=== PATIENT | female | born 1950 | race Caucasian/White ===

== ENCOUNTER → 2017-09-07 | Outpatient (CLI) | payer MEDICARE, OTHER ==
[2017-09-07 19:17] LABS: BASOPHILS % (AUTO) 0.6 %; EOSINOPHILS # (AUTO) 0.2 10^3/uL (0.0-0.7); EOSINOPHILS % (AUTO) 2.7 %; HCT - HEMATOCRIT 44.3 % (37.0-47.0); HGB - HEMOGLOBIN 14.6 g/dL (12.0-16.0); LYMPHOCYTES # (AUTO) 2.4 10^3/uL (1.5-3.5); LYMPHOCYTES % (AUTO) 27.9 %; MEAN CORPUSCULAR HEMOGLOBIN 29.8 pg (27.0-31.0); MEAN CORPUSCULAR HGB CONC 32.9 g/dL (32.0-36.0); MEAN CORPUSCULAR VOLUME 90.6 fL (81.0-99.0); MEAN PLATELET VOLUME 11.5 fL (7.9-10.8); MONOCYTES # (AUTO) 0.5 10^3/uL (0.0-1.0); MONOCYTES % (AUTO) 5.8 %; NEUTROPHILS # (AUTO) 5.5 10^3/uL (1.5-6.6); RED BLOOD COUNT 4.89 10^6/uL (4.20-5.40); RED CELL DISTRIBUTION WIDTH 14.2 % (12.0-15.0); UNCORRECTED WHITE BLOOD COUNT 8.7 x10^3/uL; WHITE BLOOD COUNT 8.7 x10^3/uL (4.8-10.8)
[2017-09-07 19:34] LABS: ALBUMIN/GLOBULIN RATIO 1.2 (1.0-2.2); BILIRUBIN,TOTAL 0.4 mg/dL (0.2-1.0); BUN - BLOOD UREA NITROGEN 14 mg/dL (6-20); CALCIUM 9.3 mg/dL (8.5-10.3); CARBON DIOXIDE - CO2 25 mmol/L (21-32); CHLORIDE 101 mmol/L (101-111); CHOL/HDL RATIO 3.4 (<4.4); CHOLESTEROL 172 mg/dL; CREATININE 0.8 mg/dL (0.4-1.0); GFR - MDRD 71 (>89); GLUCOSE 297 mg/dL (70-100); HDL CHOLESTEROL 50 mg/dL; POTASSIUM 4.6 mmol/L (3.5-5.0); SODIUM 135 mmol/L (135-145); TOTAL PROTEIN 7.2 g/dL (6.7-8.2); TRIGLYCERIDES 113 mg/dL; VLDL CHOLESTEROL 23 mg/dL
[2017-09-07 19:54] LABS: HEMOGLOBIN A1C 1.69 g/dL
== END ==
LOC: LAB.WCP 15:30
PROVIDERS: ATTEND Family Medicine
DX: E11.9 Type 2 diabetes mellitus without complications (principal)
CPT/HCPCS: 36415; 80053; 80061; 82043; 83036; 85025

== ENCOUNTER → 2017-09-09 | Outpatient (CLI) | payer MEDICARE, OTHER | LOC: LAB.WCP 08:00 | PROVIDERS: ATTEND Family Medicine | DX: E11.9 Type 2 diabetes mellitus without complications (principal) | CPT/HCPCS: 82043 ==

== ENCOUNTER 2017-12-22 16:03 | Outpatient (CLI) | payer MEDICARE, OTHER ==
[2017-12-22 18:47] LABS: BASOPHILS % (AUTO) 0.4 %; EOSINOPHILS # (AUTO) 0.3 10^3/uL (0.0-0.7); EOSINOPHILS % (AUTO) 3.3 %; HGB - HEMOGLOBIN 14.2 g/dL (12.0-16.0); LYMPHOCYTES # (AUTO) 3.1 10^3/uL (1.5-3.5); LYMPHOCYTES % (AUTO) 31.5 %; MEAN CORPUSCULAR HEMOGLOBIN 30.1 pg (27.0-31.0); MEAN CORPUSCULAR VOLUME 91.3 fL (81.0-99.0); MEAN PLATELET VOLUME 10.8 fL (7.9-10.8); MONOCYTES # (AUTO) 0.7 10^3/uL (0.0-1.0); MONOCYTES % (AUTO) 6.9 %; NEUTROPHILS # (AUTO) 5.7 10^3/uL (1.5-6.6); NEUTROPHILS % (AUTO) 57.9 %; PLT - PLATELET COUNT 187 10^3/uL (130-450); RED BLOOD COUNT 4.71 10^6/uL (4.20-5.40); RED CELL DISTRIBUTION WIDTH 14.3 % (12.0-15.0); WHITE BLOOD COUNT 9.8 x10^3/uL (4.8-10.8)
[2017-12-22 19:08] LABS: ALBUMIN 3.9 g/dL (3.2-5.5); ALBUMIN/GLOBULIN RATIO 1.2 (1.0-2.2); ALKALINE PHOSPHATASE 77 IU/L (42-121); ALT ALANINE AMINOTRANSFERASE 18 IU/L (10-60); AST ASPARTATE AMINOTRANSFERASE 18 IU/L (10-42); BILIRUBIN,TOTAL 0.3 mg/dL (0.2-1.0); BUN - BLOOD UREA NITROGEN 14 mg/dL (6-20); CALCIUM 9.3 mg/dL (8.5-10.3); CARBON DIOXIDE - CO2 26 mmol/L (21-32); CHLORIDE 98 mmol/L (101-111); CHOL/HDL RATIO 3.6 (<4.4); CHOLESTEROL 175 mg/dL; CREATININE 0.7 mg/dL (0.4-1.0); GFR - MDRD 83 (>89); GLUCOSE 175 mg/dL (70-100); HDL CHOLESTEROL 48 mg/dL; LDL CHOLESTEROL,CALCULATED 95 mg/dL; SODIUM 137 mmol/L (135-145); TOTAL PROTEIN 7.2 g/dL (6.7-8.2); VLDL CHOLESTEROL 32 mg/dL
[2017-12-22 19:09] LABS: HB2 TOTAL 15.4 g/dL; HEMOGLOBIN A1C 1.38 g/dL; HEMOGLOBIN A1C % 10.3 % (4.6-6.2)
== END 2017-12-22 16:04 | disposition home or self-care (01) ==
LOC: LAB.WCP 16:03
PROVIDERS: ATTEND Family Medicine
DX: I10 Essential (primary) hypertension (principal); Z79.4 Long term (current) use of insulin; E11.9 Type 2 diabetes mellitus without complications
CPT/HCPCS: 36415; 80053; 80061; 82043; 83036; 83721; 84443; 85025

== ENCOUNTER 2018-08-22 08:00 | Outpatient (CLI) | payer MEDICARE, OTHER | END 2018-08-22 08:01 | disposition home or self-care (01) | LOC: LAB.R 08:00 | PROVIDERS: ATTEND Family Medicine | DX: R30.0 Dysuria (principal) | CPT/HCPCS: 87086 ==

== ENCOUNTER 2018-08-31 11:05 | Outpatient (CLI) | payer MEDICARE, OTHER ==
[2018-08-31 18:54] LABS: BILIRUBIN,URINE NEGATIVE (NEGATIVE); GLUCOSE, URINE (UA) >=1000 mg/dL (NEGATIVE); KETONES,URINE (UA) NEGATIVE (NEGATIVE); LEUKOCYTE ESTERASE, URINE NEGATIVE (NEGATIVE); NITRITE,URINE NEGATIVE (NEGATIVE); OCCULT BLOOD,URINE NEGATIVE (NEGATIVE); PROTEIN,URINE NEGATIVE (NEGATIVE); UROBILINOGEN,URINE 0.2 (NORMAL) E.U./dL (NORMAL)
[2018-08-31 19:07] LABS: CLARITY,URINE CLOUDY (CLEAR)
[2018-08-31 19:16] LABS: AMORPHOUS SEDIMENT,UR Moderate /LPF; BACTERIA,URINE None Seen /HPF (None Seen); RBC,URINE None Seen /HPF (0-5); SQUAMOUS EPITHELIAL CELL,UR RARE Squamous (<= Few)
[2018-08-31 19:17] LABS: CRYSTALS,URINE 3-5 Calcium Oxalate /LPF
== END 2018-08-31 11:06 ==
LOC: LAB.R 11:05
PROVIDERS: ATTEND Nurse Practitioner
DX: R30.0 Dysuria (principal)
CPT/HCPCS: 81001; 81003; 87086

== ENCOUNTER 2019-01-17 10:15 | Outpatient (CLI) | payer MEDICARE, OTHER ==
[2019-01-17 12:53] LABS: BASOPHILS # (AUTO) 0.1 10^3/uL (0.0-0.1); BASOPHILS % (AUTO) 0.8 %; EOSINOPHILS # (AUTO) 0.2 10^3/uL (0.0-0.7); EOSINOPHILS % (AUTO) 2.3 %; HGB - HEMOGLOBIN 14.3 g/dL (12.0-16.0); LYMPHOCYTES # (AUTO) 2.6 10^3/uL (1.5-3.5); LYMPHOCYTES % (AUTO) 27.1 %; MEAN CORPUSCULAR HGB CONC 34.2 g/dL (32.0-36.0); MEAN CORPUSCULAR VOLUME 90.7 fL (81.0-99.0); MEAN PLATELET VOLUME 11.2 fL (7.9-10.8); MONOCYTES # (AUTO) 0.7 10^3/uL (0.0-1.0); NEUTROPHILS # (AUTO) 6.1 10^3/uL (1.5-6.6); NEUTROPHILS % (AUTO) 62.8 %; PLT - PLATELET COUNT 184 10^3/uL (130-450); RED BLOOD COUNT 4.61 10^6/uL (4.20-5.40); RED CELL DISTRIBUTION WIDTH 14.2 % (12.0-15.0); WHITE BLOOD COUNT 9.7 x10^3/uL (4.8-10.8)
[2019-01-17 13:03] LABS: ALBUMIN 3.8 g/dL (3.2-5.5); ALBUMIN/GLOBULIN RATIO 1.1 (1.0-2.2); ALKALINE PHOSPHATASE 120 IU/L (42-121); ALT ALANINE AMINOTRANSFERASE 18 IU/L (10-60); AST ASPARTATE AMINOTRANSFERASE 18 IU/L (10-42); BILIRUBIN,TOTAL 0.4 mg/dL (0.2-1.0); BUN - BLOOD UREA NITROGEN 27 mg/dL (6-20); CALCIUM 10.2 mg/dL (8.5-10.3); CARBON DIOXIDE - CO2 26 mmol/L (21-32); CHLORIDE 98 mmol/L (101-111); CHOL/HDL RATIO 3.5 (<4.4); CHOLESTEROL 178 mg/dL; CREATININE 0.9 mg/dL (0.4-1.0); GFR - MDRD 62 (>89); GLUCOSE 319 mg/dL (70-100); HDL CHOLESTEROL 51 mg/dL; LDL CHOLESTEROL,CALCULATED 93 mg/dL; LDL/HDL RATIO 1.8 (<4.4); SODIUM 134 mmol/L (135-145); TOTAL PROTEIN 7.2 g/dL (6.7-8.2); VLDL CHOLESTEROL 34 mg/dL
[2019-01-17 13:36] LABS: HB2 TOTAL 15.8 g/dL; HEMOGLOBIN A1C 1.74 g/dL; HEMOGLOBIN A1C % 12.2 % (4.6-6.2)
== END 2019-01-17 10:16 | disposition home or self-care (01) ==
LOC: LAB.WCP 10:15
PROVIDERS: ATTEND Family Medicine
DX: E11.65 Type 2 diabetes mellitus with hyperglycemia (principal); I10 Essential (primary) hypertension
CPT/HCPCS: 36415; 80053; 80061; 83036; 83721; 84443; 85025

== ENCOUNTER 2019-04-21 08:00 | Outpatient (CLI) | payer MEDICARE, OTHER ==
[2019-04-21 19:14] LABS: HB2 TOTAL 14.3 g/dL; HEMOGLOBIN A1C 1.37 g/dL; HEMOGLOBIN A1C % 10.9 % (4.6-6.2)
== END 2019-04-21 23:59 | disposition home or self-care (01) ==
LOC: LAB.WCP 08:00
PROVIDERS: ATTEND Family Medicine
DX: E11.65 Type 2 diabetes mellitus with hyperglycemia (principal)
CPT/HCPCS: 36415; 83036

== ENCOUNTER 2019-08-14 15:00 | Outpatient (CLI) | payer MEDICARE, OTHER ==
[2019-08-14 19:35] LABS: CALCIUM 9.9 mg/dL (8.5-10.3); CREATININE 0.8 mg/dL (0.4-1.0)
[2019-08-14 20:14] LABS: HB2 TOTAL 14.4 g/dL; HEMOGLOBIN A1C 1.34 g/dL; HEMOGLOBIN A1C % 10.7 % (4.6-6.2)
== END 2019-08-14 23:59 | disposition home or self-care (01) ==
LOC: LAB.N 15:00
PROVIDERS: ATTEND Family Medicine
DX: E11.8 Type 2 diabetes mellitus with unspecified complications (principal)
CPT/HCPCS: 36415; 80048; 82043; 82570; 83036

== ENCOUNTER 2019-11-24 10:51 | Outpatient (CLI) | payer MEDICARE, OTHER ==
[2019-11-24 18:45] LABS: BASOPHILS % (AUTO) 0.5 %; EOSINOPHILS # (AUTO) 0.2 10^3/uL (0.0-0.7); EOSINOPHILS % (AUTO) 2.6 %; HGB - HEMOGLOBIN 13.3 g/dL (12.0-16.0); LYMPHOCYTES # (AUTO) 2.4 10^3/uL (1.5-3.5); LYMPHOCYTES % (AUTO) 28.5 %; MEAN CORPUSCULAR HGB CONC 32.1 g/dL (32.0-36.0); MEAN CORPUSCULAR VOLUME 93.5 fL (81.0-99.0); MONOCYTES # (AUTO) 0.6 10^3/uL (0.0-1.0); MONOCYTES % (AUTO) 6.7 %; NEUTROPHILS # (AUTO) 5.2 10^3/uL (1.5-6.6); NEUTROPHILS % (AUTO) 61.3 %; PLT - PLATELET COUNT 132 10^3/uL (130-450); RED BLOOD COUNT 4.43 10^6/uL (4.20-5.40); RED CELL DISTRIBUTION WIDTH 14.4 % (12.0-15.0); WHITE BLOOD COUNT 8.5 x10^3/uL (4.8-10.8)
[2019-11-24 18:48] LABS: ALBUMIN 3.7 g/dL (3.2-5.5); ALBUMIN/GLOBULIN RATIO 1.2 (1.0-2.2); ALKALINE PHOSPHATASE 79 IU/L (42-121); ALT ALANINE AMINOTRANSFERASE 18 IU/L (10-60); AST ASPARTATE AMINOTRANSFERASE 17 IU/L (10-42); BILIRUBIN,TOTAL 0.5 mg/dL (0.2-1.0); BUN - BLOOD UREA NITROGEN 15 mg/dL (6-20); CALCIUM 9.6 mg/dL (8.5-10.3); CARBON DIOXIDE - CO2 26 mmol/L (21-32); CHLORIDE 100 mmol/L (101-111); CHOL/HDL RATIO 3.1 (<4.4); CHOLESTEROL 133 mg/dL; CREATININE 0.9 mg/dL (0.4-1.0); GFR - MDRD 62 (>89); GLUCOSE 173 mg/dL (70-100); HDL CHOLESTEROL 43 mg/dL; LDL CHOLESTEROL,CALCULATED 65 mg/dL; LDL/HDL RATIO 1.5 (<4.4); SODIUM 137 mmol/L (135-145); TOTAL PROTEIN 6.9 g/dL (6.7-8.2); VLDL CHOLESTEROL 25 mg/dL
[2019-11-24 18:51] LABS: HB2 TOTAL 13.7 g/dL; HEMOGLOBIN A1C 1.23 g/dL; HEMOGLOBIN A1C % 10.4 % (4.6-6.2)
[2019-11-24 19:14] LABS: PLATELET ESTIMATE, MANUAL NORMAL (130-450,000) (NORMAL); PLATELET MORPHOLOGY NORMAL APPEARANCE (NORMAL); RBC MORPHOLOGY (MULTIPLE) NORMAL APPEARANCE (NORMAL)
== END 2019-11-24 23:59 | disposition home or self-care (01) ==
LOC: LAB.N 10:51
PROVIDERS: ATTEND Family Medicine
DX: N28.9 Disorder of kidney and ureter, unspecified (principal); E78.5 Hyperlipidemia, unspecified; E11.65 Type 2 diabetes mellitus with hyperglycemia; I10 Essential (primary) hypertension
CPT/HCPCS: 36415; 80053; 80061; 82043; 82570; 83036; 83721; 84443; 85025

== ENCOUNTER 2019-11-28 11:37 | Outpatient (CLI) | payer MEDICARE, OTHER ==
[2019-11-28 19:19] LABS: MICROALBUM/CREATININE RATIO,UR 18.8 ug/mg (<30.0); MICROALBUMIN,URINE 1.2 mg/dL (0-300.0)
== END 2019-11-28 23:59 | disposition home or self-care (01) ==
LOC: LAB.R 11:37
PROVIDERS: ATTEND Family Medicine
DX: N28.9 Disorder of kidney and ureter, unspecified (principal); E78.5 Hyperlipidemia, unspecified; E11.65 Type 2 diabetes mellitus with hyperglycemia; I10 Essential (primary) hypertension
CPT/HCPCS: 82043; 82570

== ENCOUNTER 2019-12-25 15:19 | Outpatient (CLI) | payer MEDICARE, OTHER ==
--- NOTE | 2019-12-27 18:00 | Mammography Report ---
Reason: ROUTINE MAMMO Procedure Date: 12/25/2019 Accession Number: [id number] / [id number] Procedure: MGN - Screening Mammo Dig Bilat CPT Code: Final Report FULL RESULT: EXAM: Screening Mammo Dig Bilat DATE: 12/25/2019 3:49 PM CLINICAL HISTORY: Routine screening. History of right lumpectomy and radiation therapy TECHNIQUE: (B) - Bilateral CC and MLO views were obtained. COMPARISON: 09/23/17, 06/19/2016 and 06/18/2015 PARENCHYMAL PATTERN: (D) - The breasts demonstrate heterogeneously dense fibroglandular parenchyma bilaterally. FINDINGS: Posttreatment changes right breast including architectural distortion, skin thickening, and multiple surgical clips are similar to previous. There are no new suspicious masses, calcifications, or areas of distortion. IMPRESSION: Benign findings. BI-RADS category 2. RECOMMENDATION: (ANNUAL) - Recommend routine annual screening mammography. BI-RADS CATEGORY: (2) - Benign Findings. STANDARD QUALIFYING STATEMENTS: 1. This examination was not reviewed with the aid of Computer-Aided Detection (CAD). 2. A negative or benign imaging report should not preclude biopsy if clinically suspicious findings are present. 3. Dense breasts may obscure an underlying neoplasm. 4. This examination was reviewed without the aid of 3D breast imaging (tomosynthesis).
== END 2019-12-25 15:20 | disposition home or self-care (01) ==
LOC: DI.N 15:19
PROVIDERS: ATTEND Family Medicine
DX: Z12.31 Encounter for screening mammogram for malignant neoplasm of breast (principal); Z85.3 Personal history of malignant neoplasm of breast; Z92.3 Personal history of irradiation
CPT/HCPCS: 77067

== ENCOUNTER 2020-02-26 08:00 | Outpatient (CLI) | payer MEDICARE, OTHER ==
[2020-02-26 12:16] LABS: CALCIUM 9.7 mg/dL (8.5-10.3); CREATININE 0.9 mg/dL (0.4-1.0)
[2020-02-26 12:30] LABS: CREATININE,URINE 72.8 mg/dL; MICROALBUMIN,URINE 0.8 mg/dL (0-300.0)
[2020-02-26 12:31] LABS: HEMOGLOBIN A1C 1.17 g/dL; HEMOGLOBIN A1C % 9.8 % (4.6-6.2)
== END 2020-02-26 23:59 | disposition home or self-care (01) ==
LOC: LAB.WCP 08:00
PROVIDERS: ATTEND Family Medicine
DX: E11.65 Type 2 diabetes mellitus with hyperglycemia (principal)
CPT/HCPCS: 36415; 80048; 82043; 82570; 83036

== ENCOUNTER 2020-04-17 08:00 | Outpatient (CLI) | payer MEDICARE, OTHER ==
[2020-04-17 17:47] LABS: BASOPHILS # (AUTO) 0.1 10^3/uL (0.0-0.1); BASOPHILS % (AUTO) 0.6 %; EOSINOPHILS # (AUTO) 0.2 10^3/uL (0.0-0.7); EOSINOPHILS % (AUTO) 2.2 %; HGB - HEMOGLOBIN 13.5 g/dL (12.0-16.0); LYMPHOCYTES # (AUTO) 3.6 10^3/uL (1.5-3.5); LYMPHOCYTES % (AUTO) 33.5 %; MEAN CORPUSCULAR HEMOGLOBIN 29.3 pg (27.0-31.0); MEAN CORPUSCULAR VOLUME 91.7 fL (81.0-99.0); MONOCYTES # (AUTO) 0.7 10^3/uL (0.0-1.0); MONOCYTES % (AUTO) 6.7 %; NEUTROPHILS # (AUTO) 6.1 10^3/uL (1.5-6.6); NEUTROPHILS % (AUTO) 56.7 %; PLT - PLATELET COUNT 180 10^3/uL (130-450); RED CELL DISTRIBUTION WIDTH 13.5 % (12.0-15.0); WHITE BLOOD COUNT 10.8 x10^3/uL (4.8-10.8)
[2020-04-17 18:00] LABS: CALCIUM 10.1 mg/dL (8.5-10.3); CREATININE 0.8 mg/dL (0.4-1.0)
== END 2020-04-17 23:59 | disposition home or self-care (01) ==
LOC: LAB.WCP 08:00
PROVIDERS: ATTEND Orthopaedic Surgery
DX: Z01.818 Encounter for other preprocedural examination (principal)
CPT/HCPCS: 36415; 80048; 85025

== ENCOUNTER 2020-08-15 15:07 | Outpatient (CLI) | payer MEDICARE, OTHER ==
[2020-08-15 18:29] LABS: CALCIUM 9.8 mg/dL (8.5-10.3); CREATININE 0.8 mg/dL (0.4-1.0)
[2020-08-15 19:37] LABS: HEMOGLOBIN A1c% 12.4 % (4.27-6.07)
== END 2020-08-15 23:59 | disposition home or self-care (01) ==
LOC: LAB.WCP 15:07
PROVIDERS: ATTEND Family Medicine
DX: E11.9 Type 2 diabetes mellitus without complications (principal)
CPT/HCPCS: 36415; 80048; 82043; 82570; 83036

== ENCOUNTER 2020-08-16 09:20 | Outpatient (CLI) | payer MEDICARE, OTHER ==
[2020-08-16 12:09] LABS: CREATININE,URINE 32.5 mg/dL; MICROALBUMIN,URINE < 0.2 mg/dL (0-300.0)
== END 2020-08-16 23:59 | disposition home or self-care (01) ==
LOC: LAB.WCP 09:20
PROVIDERS: ATTEND Family Medicine
DX: E11.9 Type 2 diabetes mellitus without complications (principal)
CPT/HCPCS: 82043; 82570

== ENCOUNTER 2020-11-01 08:00 | Outpatient (CLI) | payer MEDICARE, OTHER ==
[2020-11-01 18:28] LABS: BUN - BLOOD UREA NITROGEN 22 mg/dL (6-20); CALCIUM 10.2 mg/dL (8.5-10.3); CARBON DIOXIDE - CO2 27 mmol/L (21-32); CHLORIDE 96 mmol/L (101-111); CHOL/HDL RATIO 3.4 (<4.4); CHOLESTEROL 179 mg/dL; GLUCOSE 264 mg/dL (70-100); HDL CHOLESTEROL 53 mg/dL; LDL CHOLESTEROL,CALCULATED 97 mg/dL; LDL/HDL RATIO 1.8 (<4.4); SODIUM 135 mmol/L (135-145); VLDL CHOLESTEROL 29 mg/dL
[2020-11-01 19:45] LABS: HEMOGLOBIN A1c% 11.6 % (4.27-6.07)
== END 2020-11-01 23:59 | disposition home or self-care (01) ==
LOC: LAB.WCP 08:00
PROVIDERS: ATTEND Internal Medicine
DX: E11.22 Type 2 diabetes mellitus with diabetic chronic kidney disease (principal); N18.2 Chronic kidney disease, stage 2 (mild); M54.5 Low back pain; E11.65 Type 2 diabetes mellitus with hyperglycemia; I12.9 Hypertensive chronic kidney disease with stage 1 through stage 4 chronic kidney disease, or unspecified chronic kidney disease; Z79.4 Long term (current) use of insulin
CPT/HCPCS: 36415; 80048; 80061; 83036; 83721

== ENCOUNTER 2020-11-07 11:45 | Outpatient (CLI) | payer MEDICARE, OTHER ==
--- OUTSIDE RECORDS SUMMARY | 2020-11-12 14:46 | EXTERNAL MEDICAL SUMMARY RPT | Continuity of Care Document ---
:1950 Demographics Phone Unavailable Preferred Language Yi Marital Status Unknown Catholic Affiliation Unknown Race Unknown Ethnic Group Unknown Author Organization [place] Address [address] [phone] Phone Care Team Providers Name Role Phone Javi PAIGE, Unavailable Unavailable Juan PAIGE, Unavailable Unavailable JUAN ELY Unavailable Unavailable Gibson REES, Unavailable Unavailable Solis Juan Unavailable Unavailable SOLIS, - JUAN Unavailable Unavailable MD [facility] [place]AN Unavailable Unavailable Juan Ely Unavailable Unavailable Javi Gonzalez Unavailable Unavailable Problems date description facility 2017-09-07 00:00 TYPE 2 DIABETES MELLITUS [facility] WITHOUT COMPLICATIONS 2017-09-07 00:00:00 Diabetes mellitus without [facility] mention of complication, type II [place] [address] [place] or unspecified type, not stated as uncontrolled 2017-09-07 00:00:00 Benign essential hypertension [facility] Primary Care [address] 2017-09-07 [facility] [address] [facility]-09-07 00:00:00 Anxiety disorder, unspecified [facility] Primary Care [address] 2017-09-07 00:00:00 [facility] [address] 2017-09-07 00:00:00 [facility] [address] 2017-09-07 00:00:00 [facility] [address] 2017-09-07 00:00:00 Other screening mammogram [facility] Primary Care [address] 2017-09-07 00:00:00 [facility] [address] 2017-09-07 00:00:00 [facility] [address] 2017-09-07 00:00:00 [facility] [address] 2017-09-07 00:00:00 Health-related behavior [facility] [place] [facility] 2017-09-07 00:00:00 Chronic low back pain [facility] P [facility] Care [facility] 2017-09-07 00:00:00 Pain Medication Management [facility] Primary Care Consultation [facility] 2017-09-07 00:00:00 Type 2 diabetes mellitus [facility] 2017-09-07 00:00:00 Anxiety state, unspecified [facility] Primary Care [facility] 2017-09-07 00:00:00 MM SCR DIGITAL BILAT [facility] Pr imary Care [facility] 2017-09-07 00:00:00 Microalbumin [facility] Prim esha Care [facility] 2017-09-07 00:00:00 CBC W/Diff/Plt [facility] Prim [facility] 2017-09-07 00:00:00 Type 2 diabetes mellitus [facility] without complications [facility] 2017-09-07 00:00:00 Details of drug misuse behavior [facility] Primary Care [facility] 2017-09-07 00:00:00 Tobacco smoking status NHIS [facility] Primary Care [facility] 2017-09-07 00:00:00 Essential (primary) [facility] Care hypertension [facility] 2017-09-07 00:00:00 [facility] 2017-09-07 00:00:00 [facility] mammogram for malignant neoplasm [facility] of breast 2017-09-07 00:00:00 Tobacco use and exposure [facility] 2017-09-07 00:00:00 Screening mammography [facility] P [facility] Care [facility] 2017-09-07 00:00:00 Anxiety [facility] Prim [facility] 2017-09-07 00:00:00 Lumbago [facility] Prim [facility] Care [facility] 2017-09-07 00:00:00 HGBA1C [facility] Prim [facility] 2017-09-07 00:00:00 Current every day smoker [facility] 2017-09-07 15:30 TYPE 2 DIABETES MELLITUS [facility] WITHOUT COMPLICATIONS 2017-09-09 00:00 TYPE 2 DIABETES MELLITUS [facility] WITHOUT COMPLICATIONS 2017-09-09 00:00:[address] [facility] 2017-09-09 08:00 TYPE 2 DIABETES MELLITUS [facility] WITHOUT COMPLICATIONS 2017-09-17 00:00:00 Tobacco use and exposure [facility] [address] 2017-09-17 00:00:00 Type II diabetes mellitus [facility] uncontrolled [place] [facility] 2017-09-17 00:00:00 Tobacco smoking status NHIS [facility] Primary Care [address] 2017-09-17 00:00:00 Diabetes mellitus without [facility] mention of complication, type II [place] [address] [place]ve or unspecified type, uncontrolled 2017-09-17 00:00:00 Type 2 diabetes mellitus with [facility] Primary Care hyperglycemia [place] [facility] 2017-09-17 00:00:00 Alcohol intake [facility] [place] [facility] 2017-09-17 00:00:00 Current every day smoker [facility] 2017-09-17 00:00:00 Exercise [facility] 2017-09-17 00:00:00 Details of drug misuse behavior [facility] 2017-09-24 00:00:00 Long-term (current) use of [facility] Primary Care insulin [facility] 2017-09-24 00:00:00 correction (current) use of [facility] Primary Care insulin [facility] 2017-09-24 00:00:00 Long-term current use of [facility] insulin [facility] 2017-10-21 [facility] 2017-10-21 00:00:00 Tobacco use and exposure [facility] [place] [facility] 2017-10-21 00:00:00 Details of drug misuse behavior [facility] [place] [facility] 2017-10-21 00:00:00 Health-related behavior [facility] Primary Care [facility] 2017-10-21 00:00:00 Current every day smoker [facility] 2017-10-21 00:00:00 Tobacco smoking status NHIS [facility] 2017-12-13 00:00:00 COM[facility]HENSIVE [facility]IC [facility]EL [facility] 2017-12-13 00:00:00 [facility] 2017-12-13 00:00:00 CBC W/Diff/Plt [facility] Prim [facility] 2017-12-13 00:00:00 MICROALBUMIN-RANDOM URINE [facility] 2017-12-13 00:00:[address] [facility] 2017-12-13 00:00:00 TSH w/Reflex to Free T4, if [facility] Primary Care needed [facility] 2017-12-22 00:00 GROUP HOME (CURRENT) USE OF [facility] INSULIN 2017-12-22 16:03 TYPE 2 DIABETES MELLITUS [facility] WITHOUT COMPLICATIONS 2017-12-22 16:03 ESSENTIAL (PRIMARY) [facility] HYPERTENSION 2017-12-22 16:03 TELEPHONE OPERATOR (CURRENT) USE OF [facility] INSULIN 2017-12-28 00:00:00 Details of drug misuse behavior [facility] [place] [facility] 2017-12-28 00:00:00 Current every day smoker [facility] 2018-03-08 00:00:00 X-RAY EXAM CHEST 2 VIEWS [facility] 2018-03-08 00:00:00 Tobacco use and exposure [facility] 2018-03-08 00:00:00 Details of drug misuse behavior [facility] [place] [facility] 2018-03-08 00:00:00 Trigger finger, unspecified [facility] Primary [facility] finger [facility] 2018-03-08 00:00:00 Health-related behavior [facility] 2018-03-08 00:00:00 Trigger finger (acquired) [facility] Primary [facility] 2018-03-08 00:00:00 COMPREHENSIVE METABOLIC PANEL [facility] 2018-03-08 00:00:00 [facility]BA[facility]C [facility] 2018-03-08 00:00:00 CBC W/Diff/Plt [facility] 2018-03-08 00:00:00 Cough [facility] 2018-03-08 00:00:00 Disorder of finger [facility] 2018-03-08 00:00:00 Exercise [facility] 2018-03-08 00:00:00 Current every day smoker [facility] 2018-03-08 00:00:00 Tobacco smoking status SDIS [facility]He [facility] 2018-06-07 00:00:00 Health-related behavior [facility] 2018-06-07 00:00[facility]:00:00 [facility]BA[facility]C [facility] 2018-06-07 00:00:00 Tobacco smoking status [facility] 2018-06-07 00:00:[address] [facility] 2018-06-07 00:00:00 Tobacco use and exposure [facility] Primary [facility] 2018-06-07 00:00:00 Details of drug misuse behavior [facility] 2018-06-07 00:00:00 Current every day smoker [facility] 2018-08-22 00:00 DYSURIA [facility] 2018-08-22 00:00:00 [facility] [place] [facility] 2018-08-22 00:00:[facility] 2018-08-22 00:00:00 Health-related behavior [facility] [place] [facility] 2018-08-22 00:00:00 Current every day smoker [facility] [place] [facility] 2018-08-22 00:00:00 [facility] [place] [facility] 2018-08-22 00:00:00 [facility]:00:00 Urine [facility]-22 00:00:00 Details of drug misuse behavior [facility] Primary Care [facility] 2018-08-22 08:00 [facility] 2018-08-26 00:00:00 UA W/Micro, C&S if Ind [facility] 2018-08-29 00:00:00 UA W/Micro, C&S if Ind [facility] [place] [facility] 2018-08-31 11:05 [facility] 2018-09-07 00:00:00 Health[facility] [place] [facility] 2018-09-07 00:00:00 Depressive disorder, not [facility] elsewhere classified [place] [facility] 2018-09-07 00:00:00 MICROALBUMIN-RANDOM URINE [facility] [place] [facility] 2018-09-07 00:00:00 [facility]1C [facility] 2018-09-07 00:00:00 Tobacco smoking status NHIS [facility] [place] [facility] 2018-09-07 00:00:00 Total score? [facility] 2018-09-07 00:00:00 LIPID SCREEN, FASTING [facility] P [facility] 2018-09-07 00:00:00 [facility] 2018-09-07 00:00:00 CBC W[facility]Diff[facility] 2018-09-07 00:00:00 Tobacco use and exposure [facility] 2018-09-07 00:00:00 Depressive disorder [facility] 2018-09-07 00:00:00 COMPREHENSIVE METABOLIC PANEL [facility] 2018-09-07 00:00:00 Major depressive disorder, [facility] Primary Care single episode, unspecified [facility] 2018-09-07 00:00:00 Details of drug misuse behavior [facility] 2018-09-07 00:00:00 Current every day smoker [facility] Care [facility] 2018-09-08 00:00:00 Endocrinology Consultation [facility] 2018-09-27 00:00:00 Encounter for screening [facility] mammogram for malignant neoplasm Jairo Whitehead rive of breast 2018-09-27 00:00:00 Screening mammography [facility] P [facility] 2018-09-27 00:00:00 MM SCR DIGITAL BILAT [facility] Pr [facility] 2018-09-27 00:00:00 Other screening [facility] 2019-01-17 00:00:00 Malignant neoplasm of [facility] (female), unspecified [facility] 2019-01-17 00:00:00 COMPREHENSIVE METABOLIC PANEL [facility] 2019-01-17 00:00:00 FECAL OCCULT BLOOD (FIT) [facility] 2019-01-17 00:00:[address] [facility] 2019-01-17 00:00:00 CBC W/Diff/Plt [facility] 2019-01-17 00:00:00 Health-related behavior [facility] 2019-01-17 00:00:00 Current every day smoker [facility] 2019-01-17 00:00:00 Screening for malignant [facility] neoplasms of colon [facility] 2019-01-17 00:00:00 TSH [facility] 2019-01-17 00:00:00 Malignant [facility] unspecified site of unspecified [place] [facility] female breast 2019-01-17 00:00:00 Encounter for screening for [facility] malignant neoplasm of intestinal [place] [facility] tract, unspecified 2019-01-17 00:00:00 Oncology/Hematology [facility] Consultation [facility] 2019-01-17 00:00:00 Tobacco use and exposure [facility] Primary Care [facility] 2019-01-17 00:00:00 Malignant tumor of breast [facility] Primary Care [facility] 2019-01-17 00:00:00 [facility] neoplasm of large intestine [facility] 2019-01-17 00:00:00 Tobacco smoking status NHIS [facility] Primary Care [facility] 2019-01-17 00:00:00 Total score? [facility] 2019-01-17 00:00:00 LIPID SCREEN, FASTING [facility] 2019-01-17 00:00:00 [facility] 2019-01-17 00:00:00 Details of drug misuse behavior [facility] 2019-01-17 10:15 TYPE 2 DIABETES MELLITUS WITH [facility] HYPERGLYCEMIA 2019-01-17 10:15 ESSENTIAL (PRIMARY) [facility] HYPERTENSION 2019-02-06 00:00:00 Other and unspecified [facility] hyperlipidemia [facility] 2019-02-06 00:00:00 Health[facility] 2019-02-06 00:00:00 Current every day smoker [facility] 2019-02-06 00:00:00 Hyperlipidemia [facility] 2019-02-06 00:00:00 Tobacco use and exposure [facility] 2019-02-06 00:00:00 Tobacco smoking status NHIS [facility] Primary Care [facility] 2019-02-06 00:00:00 Total score? [facility] 2019-02-06 00:00:00 Hyperlipidemia, unspecified [facility] Primary [facility] 2019-02-06 00:00:00 Exercise [facility] 2019-02-06 00:00:00 Details of drug misuse behavior [facility] 2019-03-22 00:00:00 Benign neoplasm of skin of [facility] Primary Care other and unspecified parts of [facility] 2019-03-22 00:00:[address] [facility] 2019-03-22 00:00:00 Dysplastic nevus of skin [facility] Primary [facility] 2019-03-22 00:00:00 Current every day smoker [facility] 2019-03-22 00:00:00 Total score? [facility] 2019-03-22 00:00:00 Melanocytic nevi of unspecified [facility] Care part of face [facility] 2019-03-22 00:00:00 Details of drug misuse behavior [facility] 2019-04-21 08:00 TYPE 2 DIABETES MELLITUS WITH [facility] HYPERGLYCEMIA 2019-04-28 00:00:00 Current every day smoker [facility] 2019-04-28 00:00:00 Tobacco smoking status SDIS lizzbeyKimani alth [facility] 2019-04-28 00:00:00 Total score? [facility] 2019-04-28 00:00:00 Health-related behavior Located [facility] 2019-04-28 00:00:00 Tobacco use and exposure [facility] 2019-04-28 00:00:00 Exercise [facility] 2019-04-28 00:00:00 Details of drug misuse behavior [facility] Vicki 2019-06-27 13:40 MALIGNANT NEOPLASM OF UNSP SITE [facility] OF RIGHT FEMALE BREAST 2019-06-27 13:40 SEC[address] AND UNSP MALIGNANT [facility] NE[facility]LAS[facility] 2019-[facility]-27 13:40 TYPE 2 DIABETES MELLITUS [facility] WITHOUT COMPLICATIONS 2019-06-27 13:40 NICOTINE DEPENDENCE, [facility] CIGARETTES, UNCOMPLICATED 2019-06-27 13:40 OTHER CHRONIC PAIN [facility] Center 2019-06-27 13:40 ESSENTIAL (PRIMARY) [facility] HYPERTENSION 2019-06-27 13:40 OTH DISRD OF BONE DENSITY AND [facility] STRUCTURE, OTHER SITE 2019-06-27 13:40 ESTROGEN RECEPTOR POSITIVE [facility] STATUS [ER+] 2019-06-27 13:40 GROUP HOME (CURRENT) USE OF [facility] INSULIN 2019-06-27 13:40 GROUP HOME (CURRENT) USE OF [facility] AROMATASE INHIBITORS 2019-06-27 13:40 TELEPHONE OPERATOR (CURRENT) USE OF [facility] ASPIRIN 2019-06-27 13:40 OTHER GROUP HOME (CURRENT) DRUG [facility] THERAPY 2019-06-27 13:40 PERSONAL HISTORY OF IRRADIATION [facility] 2019-07-31 00:00:00 Basic Metabolic Panel (BMP) [facility] Primary [facility] 2019-07-31 00:00:00 MICROALBUMIN/CREAT RATIO [facility] Primary Care [facility] 2019-07-31 00:00:00 HGBA1C [facility] 2019-08-07 09:00 MALIGNANT NEOPLASM OF UNSP SITE [facility] OF RIGHT FEMALE BREAST 2019-08-07 09:00 SEC[address] AND UNSP MALIGNANT [facility] NEOPLASM OF L[facility]MPH NODE, [facility] 2019-08-07 09:00 TYPE 2 DIABETES MELLITUS [facility] WITHOUT COMPLICATIONS 2019-08-07 09:00 NICOTINE DEPENDENCE, [facility] CIGARETTES, UNCOMPLICATED 2019-08-07 09:00 OTHER CHRONIC PAIN [facility] 2019-08-07 09:00 ESSENTIAL (PRIMARY) [facility] HYPERTENSION 2019-08-07 09:00 OTH DISRD OF BONE DENSITY AND [facility] STRUCTURE, OTHER SITE 2019-08-07 09:00 ESTROGEN RECEPTOR POSITIVE [facility] STATUS [ER+] 2019-08-07 09:00 TELEPHONE OPERATOR (CURRENT) USE OF [facility] INSULIN 2019-08-07 09:00 TELEPHONE OPERATOR (CURRENT) USE OF [facility] AROMATASE INHIBITORS 2019-08-07 09:00 TELEPHONE OPERATOR (CURRENT) USE OF [facility] ASPIRIN 2019-08-07 09:00 OTHER TELEPHONE OPERATOR (CURRENT) DRUG [facility] THERAPY 2019-08-07 09:00 PERSONAL HISTORY OF IRRADIATION [facility] 2019-08-08 10:30 MALIGNANT NEOPLASM OF UNSP SITE [facility] OF RIGHT FEMALE BREAST 2019-08-08 10:30 SECONDARY AND UNSP MALIGNANT [facility] NEOPLASM OF LYMPH NODE, UNSP 2019-08-08 10:30 TYPE 2 DIABETES MELLITUS [facility] WITHOUT COMPLICATIONS 2019-08-08 10:30 NICOTINE DEPENDENCE, [facility] CIGARETTES, UNCOMPLICATED 2019-08-08 10:30 OTHER CHRONIC PAIN [facility] 2019-08-08 10:30 ESSENTIAL (PRIMARY) [facility] HYPERTENSION 2019-08-08 10:30 OTH DISRD OF BONE DENSITY AND [facility] STRUCTURE, OTHER SITE 2019-08-08 10:30 ESTROGEN RECEPTOR POSITIVE [facility] STATUS [ER+] 2019-08-08 10:30 GROUP HOME (CURRENT) USE OF [facility] INSULIN 2019-08-08 10:30 GROUP HOME (CURRENT) USE OF [facility] AROMATASE INHIBITORS 2019-08-08 10:30 TELEPHONE OPERATOR (CURRENT) USE OF [facility] ASPIRIN 2019-08-08 10:30 OTHER TELEPHONE OPERATOR (CURRENT) DRUG [facility] THERAPY 2019-08-08 10:30 PERSONAL HISTORY OF IRRADIATION [facility] 2019-08-14 10:30 MALIGNANT NEOPLASM OF UNSP SITE [facility] OF RIGHT FEMALE BREAST 2019-08-14 10:30 SECONDARY AND UNSP MALIGNANT [facility] NEOPLASM OF LYMPH NODE, UNSP 2019-08-14 10:30 TYPE 2 DIABETES MELLITUS [facility] WITHOUT COMPLICATIONS 2019-08-14 10:30 NICOTINE DEPENDENCE, [facility] CIGARETTES, UNCOMPLICATED 2019-08-14 10:30 OTHER CHRONIC PAIN [facility] 2019-08-14 10:30 ESSENTIAL (PRIMARY) [facility] HYPERTENSION 2019-08-14 10:30 OTH DISRD OF BONE DENSITY AND [facility] STRUCTURE, OTHER SITE 2019-08-14 10:30 ESTROGEN RECEPTOR POSITIVE [facility] STATUS [ER+] 2019-08-14 10:30 TELEPHONE OPERATOR (CURRENT) USE OF [facility] INSULIN 2019-08-14 10:30 GROUP HOME (CURRENT) USE OF [facility] AROMATASE INHIBITORS 2019-08-14 10:30 TELEPHONE OPERATOR (CURRENT) USE OF [facility] ASPIRIN 2019-08-14 10:30 OTHER TELEPHONE OPERATOR (CURRENT) DRUG [facility] THERAPY 2019-08-14 10:30 PERSONAL HISTORY OF IRRADIATION [facility] 2019-08-14 15:00 TYPE 2 DIABETES MELLITUS WITH [facility] HYPERGLYCEMIA 2019-08-14 15:00 TYPE 2 DIABETES MELLITUS WITH [facility] UNSPECIFIED COMPLICATIONS 2019-08-15 11:30 MALIGNANT NEOPLASM OF UNSP SITE [facility] OF RIGHT FEMALE BREAST 2019-08-15 11:30 SECONDARY AND UNSP MALIGNANT [facility] NEOPLASM OF LYMPH NODE, [facility] 2019-08-15 11:30 TYPE 2 DIABETES MELLITUS [facility] WITHOUT COMPLICATIONS 2019-08-15 11:30 NICOTINE DEPENDENCE, [facility] CIGARETTES, UNCOMPLICATED 2019-08-15 11:30 OTHER CHRONIC PAIN [facility] 2019-08-15 11:30 ESSENTIAL (PRIMARY) [facility] HYPERTENSION 2019-08-15 11:30 OTH DISRD OF BONE DENSITY AND [facility] STRUCTURE, OTHER SITE 2019-08-15 11:30 ESTROGEN RECEPTOR POSITIVE [facility] STATUS [ER+] 2019-08-15 11:30 GROUP HOME (CURRENT) USE OF [facility] INSULIN 2019-08-15 11:30 GROUP HOME (CURRENT) USE OF [facility] AROMATASE INHIBITORS 2019-08-15 11:30 GROUP HOME (CURRENT) USE OF [facility] ASPIRIN 2019-08-15 11:30 OTHER TELEPHONE OPERATOR (CURRENT) DRUG [facility] THERAPY 2019-08-15 11:30 PERSONAL HISTORY OF IRRADIATION [facility] 2019-08-18 09:15 MALIGNANT NEOPLASM OF UNSP SITE [facility] OF RIGHT FEMALE BREAST 2019-08-18 09:15 SECONDARY AND UNSP MALIGNANT [facility] NEOPLASM OF LYMPH NODE, UNSP 2019-08-18 09:15 TYPE 2 DIABETES MELLITUS [facility] WITHOUT COMPLICATIONS 2019-08-18 09:15 NICOTINE DEPENDENCE, [facility] CIGARETTES, UNCOMPLICATED 2019-08-18 09:15 OTHER CHRONIC PAIN [facility] Medic [facility] 2019-08-18 09:15 ESSENTIAL (PRIMARY) [facility] HYPERTENSION 2019-08-18 09:15 OTH DISRD OF BONE DENSITY AND [facility] STRUCTURE, OTHER SITE 2019-08-18 09:15 ESTROGEN RECEPTOR POSITIVE [facility] STATUS [ER+] 2019-08-18 09:15 GROUP HOME (CURRENT) USE OF [facility] INSULIN 2019-08-18 09:15 TELEPHONE OPERATOR (CURRENT) USE OF [facility] AROMATASE INHIBITORS 2019-08-18 09:15 GROUP HOME (CURRENT) USE OF [facility] ASPIRIN 2019-08-18 09:15 OTHER GROUP HOME (CURRENT) DRUG [facility] THERAPY 2019-08-18 09:15 PERSONAL HISTORY OF IRRADIATION [facility] 2019-08-21 10:30 MALIGNANT NEOPLASM OF UNSP SITE [facility] OF RIGHT FEMALE BREAST 2019-08-21 10:30 SECONDARY AND UNSP MALIGNANT [facility] NEOPLASM OF LYMPH NODE, UNSP 2019-08-21 10:30 TYPE 2 DIABETES MELLITUS [facility] WITHOUT COMPLICATIONS 2019-08-21 10:30 NICOTINE DEPENDENCE, [facility] CIGARETTES, UNCOMPLICATED 2019-08-21 10:30 OTHER CHRONIC PAIN [facility] 2019-08-21 10:30 ESSENTIAL (PRIMARY) [facility] HYPERTENSION 2019-08-21 10:30 OTH DISRD OF BONE DENSITY AND [facility] STRUCTURE, OTHER SITE 2019-08-21 10:30 ESTROGEN RECEPTOR POSITIVE [facility] STATUS [ER+] 2019-08-21 10:30 GROUP HOME (CURRENT) USE OF [facility] INSULIN 2019-08-21 10:30 GROUP HOME (CURRENT) USE OF [facility] AROMATASE INHIBITORS 2019-08-21 10:30 TELEPHONE OPERATOR (CURRENT) USE OF [facility] ASPIRIN 2019-08-21 10:30 OTHER GROUP HOME (CURRENT) DRUG [facility] THERAPY 2019-08-21 10:30 PERSONAL HISTORY OF IRRADIATION [facility] 2019-08-24 00:00:00 Health-related behavior [facility] Primary Care [facility] 2019-08-24 00:00:00 Current every day smoker [facility] Primary Care [facility] 2019-08-24 00:00:00 Lumbago [facility] Prim esha Care [facility] 2019-08-24 00:00:00 Low back pain [facility] Prim esha [facility] 2019-08-24 00:00:00 Tobacco use and exposure [facility] h Primary Care [facility] 2019-08-24 00:00:00 Renal failure syndrome [facility] Primary Care [facility] 2019-08-24 00:00:00 [facility] 2019-08-24 00:00:00 Total score? [facility] Prim esha [facility] 2019-08-24 00:00:00 Unspecified disorder of kidney [facility] Primary Care and ureter [facility] 2019-08-24 00:00:00 Disorder of kidney and ureter, [facility] Primary Care unspecified [facility] 2019-08-24 00:00:00 Exercise [facility] 2019-08-24 00:00:00 Details of drug misuse behavior [facility] 2019-10-24 00:00:00 MICROALBUMIN/CREAT RATIO [facility] h Primary Care [facility] 2019-10-24 00:00:00 LIPID SCREEN, FASTING [facility] P [facility] 2019-10-24 00:00:[address] [facility] 2019-10-24 00:00:00 CBC W/Diff/Plt [facility] 2019-10-24 00:00:00 TSH WITH REFLEX TO FT4 Located within [facility] 2019-10-24 00:00:00 COMPREHENSIVE METABOLIC PANEL [facility] 2019-11-24 00:00 TYPE 2 DIABETES MELLITUS WITH [facility] HYPERGLYCEMIA 2019-11-24 00:00 HYPERLIPIDEMIA, [facility]NSPECIFIED [facility] 2019-11-24 00:00 ESSENTIAL (PRIMARY) [facility] HYPERTENSION 2019-11-24 00:00 DISORDER OF KIDNEY AND URETER, [facility] UNSPECIFIED 2019-11-24 10:51 TYPE 2 DIABETES MELLITUS WITH [facility] HYPERGLYCEMIA 2019-11-24 10:51 HYPERLIPIDEMIA, UNSPECIFIED [facility] 2019-11-24 10:51 ESSENTIAL (PRIMARY) [facility] HYPERTENSION 2019-11-24 10:51 DISORDER OF KIDNEY AND URETER, [facility] UNSPECIFIED 2019-11-28 00:00 TYPE 2 DIABETES MELLITUS WITH [facility] HYPERGLYCEMIA 2019-11-28 00:00 HYPERLIPIDEMIA, UNSPECIFIED [facility] 2019-11-28 00:00 ESSENTIAL (PRIMARY) [facility] HYPERTENSION 2019-11-28 00:00 DISORDER OF KIDNEY AND URETER, [facility] UNSPECIFIED 2019-11-28 00:00:00 MAMMOGRAM, SCREENING, BILATERAL [facility] 2019-11-28 11:37 TYPE 2 DIABETES MELLITUS WITH [facility] HYPERGLYCEMIA 2019-11-28 11:37 HYPERLIPIDEMIA, UNSPECIFIED [facility] 2019-11-28 11:37 ESSENTIAL (PRIMARY) [facility] HYPERTENSION 2019-11-28 11:37 DISORDER OF KIDNEY AND URETER, [facility] UNSPECIFIED 2019-12-19 00:00:00 Health-related behavior [facility] Care [facility] 2019-12-19 00:00:00 Details of drug misuse behavior [facility] 2019-12-19 00:00:00 Chronic kidney disease, Stage [facility] Care II (mild) [facility] 2019-12-19 00:00:00 Chronic kidney disease, stage 2 [facility] Care (mild) [facility] 2019-12-19 00:00:00 Chronic kidney disease stage 2 [facility] 2019-12-19 00:00:00 MM SCR DIGITAL BILAT [facility] 2019-12-19 00:00:[address] Tobacco [address] exposure [facility] 2019-12-19 00:00:00 Exercise [facility] 2019-12-19 00:00:00 Current every day sm[facility] 2019-12-19 00:00:00 Tobacco smoking status NHIS [facility] 2019-12-25 15:19 ENCNTR SCREEN MAMMOGRAM FOR [facility] MALIGNANT NEOPLASM OF BREAST 2019-12-25 15:20 ENCNTR SCREEN MAMMOGRAM FOR [facility] MALIGNANT NEOPLASM OF BREAST 2020-02-21 00:00:00 MICROALBUMIN/CREAT RATIO [facility] 2020-02-21 00:00:00 Basic Metabolic Panel (BMP) [facility] 2020-02-21 00:00:00 [facility] [place] [facility] 2020-02-26 00:00 TYPE 2 DIABETES MELLITUS WITH [facility] HYPERGLYCEMIA 2020-02-26 08:00 TYPE 2 DIABETES MELLITUS WITH [facility] HYPERGLYCEMIA 2020-03-01 00:00:00 Basic Metabolic Panel (BMP) [facility] [place] [facility] 2020-03-01 00:00:00 [facility]C [facility] 2020-04-17 00:00 ENCOUNTER FOR PREPROCEDURAL [facility] LABORATORY EXAMINATION 2020-04-17 08:00 ENCOUNTER FOR PREPROCEDURAL [facility] LABORATORY EXAMINATION 2020-04-17 08:00 ENCOUNTER FOR [facility] PREPROCEDURAL EXAMINATION 2020-04-19 10:12 Encounter for [facility] preprocedural examination 2020-04-22 09:49 Encounter for preprocedural [facility] laboratory examination 2020-05-21 00:00:00 [facility] 2020-05-21 00:00:00 Current every day smoker [facility] [place] [facility] 2020-05-21 00:00:00 Total score? [facility] [place] [facility] 2020-05-21 00:00:00 Health-related behavior [facility] Primary [facility] [place] [facility] 2020-05-21 00:00:00 Tobacco use and exposure [facility] [place] [facility] 2020-05-21 00:00:00 Details of drug misuse behavior [facility] [place] [facility] 2020-05-21 00:00:00 Tobacco smoking status NHIS 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, UNSP 2020-06-24 16:30 TYPE 2 DIABETES MELLITUS [facility] WITHOUT COMPLICATIONS 2020-06-24 16:30 NICOTINE DEPENDENCE, [facility] CIGARETTES, UNCOMPLICATED 2020-06-24 16:30 OTHER CHRONIC PAIN [facility] Medic al Center 2020-06-24 16:30 ESSENTIAL (PRIMARY) [facility] HYPERTENSION 2020-06-24 16:30 OTH DISRD OF BONE DENSITY AND [facility] STRUCTURE, OTHER SITE 2020-06-24 16:30 ESTROGEN RECEPTOR POSITIVE [facility] STATUS [ER+] 2020-06-24 16:30 TELEPHONE OPERATOR (CURRENT) USE OF [facility] INSULIN 2020-06-24 16:30 GROUP HOME (CURRENT) USE OF [facility] AROMATASE INHIBITORS 2020-06-24 16:30 TELEPHONE OPERATOR (CURRENT) USE OF [facility] ASPIRIN 2020-06-24 16:30 OTHER GROUP HOME (CURRENT) DRUG [facility] THERAPY 2020-06-24 16:30 PERSONAL HISTORY OF IRRADIATION [facility] 2020-08-05 00:00:00 MICROALBUMIN/CREAT RATIO [facility] 2020-08-05 00:00:00 Basic Metabolic Panel (BMP) [facility] 2020-08-05 00:00:[address] [facility] 2020-08-05 00:00:00 Current every day smoker [facility] 2020-08-05 00:00:00 Tobacco smoking status NHIS [facility] 2020-08-05 00:00:[address] [facility] 2020-08-05 00:00:00 Health-related behavior [facility] 2020-08-05 00:00:00 Tobacco use and exposure [facility] 2020-08-05 00:00:00 Details of drug misuse behavior [facility] 2020-08-05 00:00:00 Total score? [facility] 2020-08-15 00:00 TYPE 2 DIABETES MELLITUS WITH [facility] HYPERGLYCEMIA 2020-08-15 15:07 TYPE 2 DIABETES MELLITUS WITH [facility] HYPERGLYCEMIA 2020-08-16 00:00 TYPE 2 DIABETES MELLITUS WITH [facility] HYPERGLYCEMIA 2020-08-16 09:20 TYPE 2 DIABETES MELLITUS WITH [facility] HYPERGLYCEMIA 2020-08-16 09:20 TYPE 2 DIABETES MELLITUS [facility] WITHOUT COMPLICATIONS 2020-08-29 00:00:00 [facility]inic keratosis [facility] [place] [facility] 2020-08-29 00:00:00 Health-related behavior [facility] Primary [facility] [place] [facility] 2020-08-29 00:00:00 Tobacco use and exposure [facility] [place] [facility] 2020-08-29 00:00:00 [facility] 2020-08-29 00:00:00 Details of drug misuse behavior [facility] [place] [facility] 2020-08-29 00:00:00 Current every day [facility]oker [facility] [place] [facility] 2020-08-29 00:00:00 Tobacco smoking status NHIS [facility] [place] [facility] 2020-08-29 00:00:00 Total [facility]? [facility] [place] [facility] 2020-08-29 00:00:00 MICROALBUMIN/CREAT RATIO [facility] [place] [facility] 2020-08-29 00:00:00 Basic Metabolic Panel (BMP) [facility] [place] [facility] 2020-08-29 00:00:00 [facility]C [facility] [place] [facility] 2020-09-19 00:00:00 Basic Metabolic Panel (BMP) [facility] [place] [facility] 2020-09-19 00:00:00 LIPIDS SCREEN [facility] esha [facility] [place] [facility] 2020-09-19 00:00:00 [facility]C [facility] 2020-11-01 00:00 TYPE 2 DIABETES MELLITUS WITH [facility] HYPERGLYCEMIA 2020-11-01 00:00 ESSENTIAL (PRIMARY) [facility] HYPERTENSION 2020-11-01 00:00 LOW BACK PAIN [facility] 2020-11-01 00:00 CHRONIC KIDNEY DISEASE, STAGE 2 [facility] (MILD) 2020-11-01 00:00 TELEPHONE OPERATOR (CURRENT) USE OF [facility] INSULIN 2020-11-01 00:00:00 Basic Metabolic Panel (BMP) [facility] [place] [facility] 2020-11-01 08:00 TYPE 2 DIABETES MELLITUS WITH [facility] HYPERGLYCEMIA 2020-11-01 08:00 ESSENTIAL (PRIMARY) [facility] HYPERTENSION 2020-11-01 08:00 LOW BACK PAIN [facility] Medic al Center 2020-11-01 08:00 CHRONIC KIDNEY DISEASE, STAGE 2 [facility] (MILD) 2020-11-01 08:00 GROUP HOME (CURRENT) USE OF [facility] INSULIN 2020-11-07 00:00:00 Tobacco use disorder [facility] Pr imary Care [place] [facility] 2020-11-07 00:00:00 Tobacco use [facility] [place] [facility] 2020-11-07 00:00:00 Tobacco dependence, continuous [facility] Primary Care [place] [facility] 2020-11-07 00:00:00 Health-related [facility] [place] [facility] 2020-11-07 00:00:00 Details of drug misuse behavior [facility] [place] [facility] 2020-11-07 00:00:00 Current every day smoker [facility] Primary [facility] [place] [facility] 2020-11-07 00:00:00 Tobacco smoking status NHIS [facility] [place] [facility] 2020-11-07 00:00:00 Total score? [facility] [place] [facility] Allergies date description facility [facility] l[facility]ril [facility] Zanaflex [facility] oxyCODONE [facility] Iron [facility] ACETAMINOPHEN [facility] NO KNOWN ENVIRONMENTAL ALLERGIES [facility] PENICILLINS [facility] SULFA ANTIBIOTICS [facility] PENICILLIN [facility] NO ALLERGY INFORMATION AVAILABLE [facility] PENICILLINS [facility] IODIDES [facility] IODINE [facility] GLYBURIDE [facility] No Known Drug Allergies [facility] No Known Drug Allergies [facility] AMOXICILLIN [facility] CODEINE SULFATE [facility] ERYTHROMYCIN [facility] LAVENDER OIL [facility] Medic al Center MELOXICAM [facility] Center METOCLOPRAMIDE [facility] Center MORPHINE SULFATE [facility] Center SCOPOLAMINE [facility] Center SULFASALAZINE [facility] Center AMOXICILLIN-POT CLAVULANATE [facility] NO KNOWN ENVIRONMENTAL ALLERGIES [facility] PENICILLINS [facility] Medic al Center SULFA ANTIBIOTICS [facility] Center NO ALLERGY INFORMATION ON FILE [facility] NO KNOWN ALLERGIES [facility] Center NO ALLERGY INFORMATION AVAILABLE [facility] RISA INHIBITORS [facility] Center IODINE AND IODIDE CONTAINING PRODUCTS [facility] PENICILLINS [facility] Center SULFA (SULFONAMIDE ANTIBIOTICS) [facility] ADHESIVE [facility] Medic [facility] Center NITRATE ANALOGUES [facility] Center NO KNOWN ALLERGIES [facility] LATEX [facility] ISIDORO OIL [facility] APRICOT [facility] OKRA [facility] MORPHINE [facility] ASPIRIN [facility] IBUPROFEN [facility] PIROXICAM [facility] Medic al Center PENICILLIN V POTASSIUM [facility] M edical Center CLINDAMYCIN [facility] Medic al Center HYDROXYCHLOROQUINE SULFATE [facility] TRAMADOL [facility] Center AMITRIPTYLINE [facility] ONDANSETRON [facility] LEVOFLOXACIN [facility] DULOXETINE [facility] MILK [facility] No Known Drug Allergies [facility] Medications date description facility 2017-09-07 00:00:00 null [facility] [address] 2017-09-07 00:00:00 null [facility] [address] 2017-09-07 00:00:00 null [facility] [address] 2017-09-07 00:00:00 null [facility] [address] 2017-09-07 00:00:00 null [facility] [address] 2017-09-07 00:00:00 null [facility] [address] 2017-09-07 00:00:00 null [facility] [address] 2017-09-07 00:00:00 null [facility] [address] 2017-09-07 00:00:00 null [facility] [address] 2017-09-07 00:00:00 null [facility] [address] 2017-09-07 00:00:00 null [facility] [address] 2017-09-07 00:00:00 null [facility] [address] 2017-09-07 00:00:00 null [facility] [address] 2017-09-07 00:00:00 null [facility] [address] 2017-09-07 00:00:00 null [facility] [address] 2017-09-07 00:00:00 null [facility] [address] 2017-09-07 00:00:00 null [facility] [address] 2017-09-07 00:00:00 null [facility] [address] 2017-09-07 00:00:00 null [facility] [address] 2017-09-07 00:00:00 null [facility] [address] 2017-09-07 00:00:00 null [facility] [address] 2017-09-07 00:00:00 null [facility] [address] 2017-09-07 00:00:00 null [facility] [address] 2017-09-07 00:00:00 null [facility] [address] 2017-09-07 00:00:00 null [facility] [address] 2017-09-07 00:00:00 null [facility] [address] 2017-09-07 00:00:00 null [facility] [address] 2017-09-07 00:00:00 null [facility] [address] 2017-09-07 00:00:00 FLUCONAZOLE [facility] [address] 2017-09-07 00:00:00 SERTRALINE HCL [facility] [address] 2017-09-07 00:00:00 METFORMIN HCL [facility] [address] 2017-09-07 00:00:00 INSULIN GLARGINE [facility] [address] 2017-09-07 00:00:00 SIMVASTATIN [facility] [address] 2017-09-07 00:00:00 LETROZOLE [facility] [address] 2017-09-07 00:00:00 HYDROCHLOROTHIAZIDE [facility] [address] 2017-09-07 00:00:00 HYDROCHLOROTHIAZIDE [facility] [address] 2017-09-07 00:00:00 ASPIRIN [facility] [address] 2017-09-07 00:00:00 TELMISARTAN [facility] [address] 2017-09-07 00:00:00 CALCIUM CARBONATE-VITAMIN D [facility] Primary [facility] [address] 2017-09-07 00:00:00 INSULIN PEN NEEDLE [facility] [address] 2017-09-07 00:00:00 GLUCOSE BLOOD [facility] [address] 2017-09-07 00:00:00 LANCETS [facility] [address] 2017-09-07 00:00:00 ASPIRIN [facility] [address] 2017-09-07 00:00:00 HYDROCHLOROTHIAZIDE [facility] Gretchen [facility] [address] 2017-09-07 00:00:00 LETROZOLE [facility] [address] 2017-09-07 00:00:00 FLUCONAZOLE [facility] [address] 2017-09-07 00:00:00 SERTRALINE HCL [facility] [address] 2017-09-07 00:00:00 TELMISARTAN [facility] [address] 2017-09-07 00:00:00 HYDROCHLOROTHIAZIDE [facility] [address] 2017-09-07 00:00:00 SIMVASTATIN [facility] [address] 2017-09-07 00:00:00 INSULIN GLARGINE [facility] [address] 2017-09-07 00:00:00 METFORMIN HCL [facility] [address] 2017-09-07 00:00:00 null [facility] [address] 2017-09-07 00:00:00 null [facility] [address] 2017-09-07 00:00:00 null [facility] [address] 2017-09-07 00:00:00 null [facility] [address] 2017-09-07 00:00:00 null [facility] [address] 2017-09-07 00:00:00 null [facility] [address] 2017-09-07 00:00:00 null [facility] [address] 2017-09-07 00:00:00 null [facility] [address] 2017-09-07 00:00:00 null [facility] [address] 2017-09-07 00:00:00 null [facility] [address] 2017-09-07 00:00:00 null [facility] [address] 2017-09-07 00:00:00 null [facility] [address] 2017-09-07 00:00:00 null [facility] [address] 2017-09-07 00:00:00 null [facility] [address] 2017-09-07 00:00:00 null [facility] [address] 2017-09-07 00:00:00 null [facility] [address] 2017-09-07 00:00:00 null [facility] [address] 2017-09-07 00:00:00 null [facility] [address] 2017-09-07 00:00:00 null [facility] [address] 2017-09-07 00:00:00 null [facility] [address] 2017-09-07 00:00:00 null [facility] [address] 2017-09-07 00:00:00 null [facility] [address] 2017-09-07 00:00:00 null [facility] [address] 2017-09-07 00:00:00 null [facility] [address] 2017-09-07 00:00:00 null [facility] [address] 2017-09-07 00:00:00 null [facility] [address] 2017-09-07 00:00:00 null [facility] [address] 2017-09-07 00:00:00 null [facility] [address] 2017-09-07 00:00:00 FLUCONAZOLE [facility] [address] 2017-09-07 00:00:00 SERTRALINE HCL [facility] [address] 2017-09-07 00:00:00 METFORMIN HCL [facility] [address] 2017-09-07 00:00:00 INSULIN GLARGINE [facility] [address] 2017-09-07 00:00:00 SIMVASTATIN [facility] [address] 2017-09-07 00:00:00 LETROZOLE [facility] [address] 2017-09-07 00:00:00 [facility]IDE [facility] [address] 2017-[facility]-07 [facility]:00:00 [facility]IDE [facility] [address] [facility]-07 [facility]:00:00 ASPIRIN [facility] [address] 2017-09-07 00:00:00 TELMISARTAN [facility] [address] 2017-09-07 00:00:00 CALCIUM CARBONATE-VITAMIN D [facility] [address] 2017-09-07 00:00:00 [facility]ULIN PEN NEEDLE [facility] [address] 2017-09-07 00:00:00 [facility]COSE BLOOD [facility] [address] 2017-09-07 00:00:00 LANCETS [facility] [address] 2017-09-07 00:00:00 [facility] [address] 2017-09-07 00:00:00 HY[facility]OROTHIAZIDE [facility] [address] 2017-09-07 00:00:00 LETROZOLE [facility] [address] 2017-09-07 00:00:00 FLUCONAZOLE [facility] [address] 2017-09-07 00:00:00 SERTRALINE HCL [facility] [address] 2017-09-07 00:00:00 [facility]ARTAN [facility] [address] 2017-09-07 00:00:00 [facility]ZIDE [facility] [address] 2017-09-07 00:00:00 SIMVASTATIN [facility] [address] 2017-09-07 00:00:00 INSULIN GLARGINE [facility] [address] 2017-09-07 00:00:00 METFORMIN HCL [facility] [address] 2017-09-07 00:00:00 null [facility] [address] [facility] 2017-09-07 00:00:00 null [facility] 2017-09-07 00:00:00 null [facility] [address] [facility] 2017-09-07 00:00:00 null [facility] 2017-09-07 00:00:00 null [facility] [address] [facility] 2017-09-07 00:00:00 null [facility] [address] [facility] 2017-09-07 00:00:00 null [facility] [address] [facility] 2017-09-07 00:00:00 null [facility] [address] [facility] 2017-09-07 00:00:00 null [facility] 2017-09-07 00:00:00 null [facility] 2017-09-07 00:00:00 null [facility] [address] [facility] 2017-09-07 00:00:00 null [facility] [address] [facility] 2017-09-07 00:00:00 null [facility] [address] [facility] 2017-09-07 00:00:00 null [facility] 2017-09-07 00:00:00 null [facility] [address] [facility] 2017-09-07 00:00:00 null [facility] [address] [facility] 2017-09-07 00:00:00 null [facility] [address] [facility] 2017-09-07 00:00:00 null [facility] [address] [facility] 2017-09-07 00:00:00 null [facility] 2017-09-07 00:00:00 null [facility] [address] [facility] 2017-09-07 00:00:00 null [facility] [address] [facility] 2017-09-07 00:00:00 null [facility] [address] [facility] 2017-09-07 00:00:00 null [facility] [address] [facility] 2017-09-07 00:00:00 null [facility] 2017-09-07 00:00:00 [facility] 2017-09-07 00:00:00 null [facility] [address] [facility] 2017-09-07 00:00:00 null [facility] [address] [facility] 2017-09-07 00:00:00 [facility] [address] 2017-09-07 00:00:00 FLUCONAZOLE [facility] [address] [facility] 2017-09-07 00:00:00 SERTRALINE HCL [facility] [address] [facility] 2017-09-07 00:00:00 METFORMIN HCL [facility] [address] [facility] 2017-09-07 00:00:00 [facility] [address] [facility] 2017-[facility]-07 00:00:00 SIMVASTATIN [facility] [address] [facility] 2017-09-07 00:00:00 LETROZOLE [facility] [address] [facility] 2017-09-07 00:00:00 HY[facility]OROTHIAZIDE [facility] [address] [facility] 2017-09-07 00:00:00 [facility]OROTHIAZIDE [facility] [address] [facility] 2017-09-07 00:00:00 ASPIRIN [facility] [address] [facility] 2017-09-07 00:00:00 [facility]ISARTAN [facility] [address] [facility] 2017-09-07 00:00:00 CALCIUM CARBONATE-VITAMIN D [facility] [address] [facility] 2017-09-07 00:00:00 INSULIN PEN NEEDLE [facility] [address] [facility] 2017-09-07 00:00:00 GLUCOSE BLOOD [facility] [address] [facility] 2017-09-07 00:00:00 LANCETS [facility] [address] [facility] 2017-09-07 00:00:00 ASPIRIN [facility] [address] [facility] 2017-09-07 00:00:00 HYDROCHLOROTHIAZIDE [facility] [address] [facility] 2017-09-07 00:00:00 LETROZOLE [facility] [address] [facility] 2017-09-07 00:00:00 FLUCONAZOLE [facility] [address] [facility] 2017-09-07 00:00:00 SERTRALINE HCL [facility] [address] [facility] 2017-09-07 00:00:00 TELMISARTAN [facility] [address] [facility] 2017-09-07 00:00:00 HYDROCHLOROTHIAZIDE [facility] [address] [facility] 2017-09-07 00:00:00 SIMVASTATIN [facility] [address] [facility] 2017-09-07 00:00:00 INSULIN GLARGINE [facility] [address] 2017-09-07 00:00:00 null [facility] [address] [facility] 2017-09-07 00:00:00 null [facility] [address] [facility] 2017-09-07 00:00:00 null [facility] [address] [facility] 2017-09-07 00:00:00 null [facility] [address] [facility] 2017-09-07 00:00:00 null [facility] [address] 2017-09-07 00:00:00 null [facility] [address] [facility] 2017-09-07 00:00:00 null [facility] [address] [facility] 2017-09-07 00:00:00 null [facility] [address] [facility] 2017-09-07 00:00:00 null [facility] [address] [facility] 2017-09-07 00:00:00 null [facility] [address] 2017-09-07 00:00:00 null [facility] [address] [facility] 2017-09-07 00:00:00 null [facility] [address] [facility] 2017-09-07 00:00:00 null [facility] [address] [facility] 2017-09-07 00:00:00 null [facility] [address] [facility] 2017-09-07 00:00:00 null [facility] [address] [facility] 2017-09-07 00:00:00 null [facility] [address] [facility] 2017-09-07 00:00:00 null [facility] [address] [facility] 2017-09-07 00:00:00 null [facility] [address] [facility] 2017-09-07 00:00:00 null [facility] [address] [facility] 2017-09-07 00:00:00 null [facility] [address] [facility] 2017-09-07 00:00:00 null [facility] [address] [facility] 2017-09-07 00:00:00 null [facility] [address] [facility] 2017-09-07 00:00:00 null [facility] [address] [facility] 2017-09-07 00:00:00 null [facility] [address] [facility] 2017-09-07 00:00:00 null [facility] [address] [facility] 2017-09-07 00:00:00 null [facility] [address] [facility] 2017-09-07 00:00:00 null [facility] [address] [facility] 2017-09-07 00:00:00 null [facility] [address] [facility] 2017-09-07 00:00:00 FLUCONAZOLE [facility] [address] [facility] 2017-09-07 00:00:00 SERTRALINE HCL [facility] [address] [facility] 2017-09-07 00:00:00 [facility]FORMIN [facility] [address] [facility] 2017-[facility]-07 00:00:00 INSULIN GLARGINE [facility] [address] [facility] 2017-09-07 00:00:00 [facility] [address] [facility] 2017-[facility]-07 00:00:00 LETROZOLE [facility] [address] [facility] 2017-09-07 00:00:00 HY[facility]CHLOROTHIAZIDE [facility] [address] [facility] 2017-09-07 00:00:00 [facility]LOROTHIAZIDE [facility] [address] [facility] 2017-09-07 00:00:00 [facility]IRIN [facility] [address] [facility] 2017-09-07 00:00:00 TELMISARTAN [facility] [address] [facility] 2017-09-07 00:00:00 CALCIUM CARBONATE-VITAMIN D [facility] [address] [facility] 2017-09-07 00:00:00 INSULIN PEN NEEDLE [facility] [address] [facility] 2017-09-07 00:00:00 GLUCOSE BLOOD [facility] [address] [facility] 2017-09-07 00:00:00 LANCETS [facility] [address] [facility] 2017-09-07 00:00:00 [facility]IRIN [facility] [address] [facility] 2017-09-07 00:00:00 HYDROCHLOROTHIAZIDE [facility] [address] [facility] 2017-09-07 00:00:00 [facility]ZOLE [facility] [address] [facility] 2017-09-07 00:00:00 FLUCONAZOLE [facility] [address] [facility] 2017-09-07 00:00:00 [facility]CL [facility] [address] [facility] 2017-09-07 00:00:00 TELMISARTAN [facility] [address] [facility] 2017-09-07 00:00:00 HYDR[facility]CHLOROTHIAZIDE [facility] [address] [facility] 2017-09-07 00:00:00 SIMVASTATIN [facility] [address] [facility] 2017-09-07 00:00:00 INSULIN GLARGINE [facility] [address] [facility] 2017-09-07 00:00:00 METFORMIN HCL [facility] [address] [facility] 2017-09-07 00:00:00 null [facility] [place] 2017-09-07 00:00:00 null [facility] [place] 2017-09-07 00:00:00 null [facility] [place] 2017-09-07 00:00:00 null [facility] [place] 2017-09-07 00:00:00 null [facility] [place] 2017-09-07 00:00:00 null [facility] [place] 2017-09-07 00:00:00 null [facility] [place] 2017-09-07 00:00:00 null [facility] [place] 2017-09-07 00:00:00 null [facility] [place] 2017-09-07 00:00:00 null [facility] [place] 2017-09-07 00:00:00 null [facility] [place] 2017-09-07 00:00:00 null [facility] [address] 2017-09-07 00:00:00 null [facility] [address] 2017-09-07 00:00:00 null [facility] [place] 2017-09-07 00:00:00 null [facility] [place] 2017-09-07 00:00:00 null [facility] [place] 2017-09-07 00:00:00 null [facility] [place] 2017-09-07 00:00:00 null [facility] [address] 2017-09-07 00:00:00 null [facility] [place] 2017-09-07 00:00:00 null [facility] [address] 2017-09-07 00:00:00 null [facility] [address] 2017-09-07 00:00:00 null [facility] [address] 2017-09-07 00:00:00 null [facility] [place] 2017-09-07 00:00:00 null [facility] [address] 2017-09-07 00:00:00 null [facility] 2017-09-07 00:00:00 null [facility] [place] 2017-09-07 00:00:00 null [facility] [address] 2017-09-07 00:00:00 null [facility] [place] 2017-09-07 00:00:00 FLUCONAZOLE [facility] [address] 2017-09-07 00:00:00 SERTRALINE HCL [facility] [place] 2017-09-07 00:00:00 METFORMIN HCL [facility] [place] 2017-09-07 00:00:00 INSULIN GLARGINE [facility] [place] 2017-09-07 00:00:00 SIMVASTATIN [facility] [address] 2017-09-07 00:00:00 LETROZOLE [facility] [place] 2017-09-07 00:00:00 [facility]IDE [facility]:00 HYDR[facility]CHLOROTHIAZIDE [facility] 2017-09-07 00:00:00 ASPIRIN [facility] [address] 2017-09-07 00:00:00 TELMISARTAN [facility] [place] 2017-09-07 00:00:00 CALCIUM CARBONATE-VITAMIN D [facility] 00:00:00 INSULIN PEN NEEDLE [facility] [place] 2017-09-07 00:00:00 GLUCOSE BLOOD [facility] [place] 2017-09-07 00:00:00 LANCETS [facility] [place] 2017-09-07 00:00:00 ASPIRIN [facility] [address] 2017-09-07 00:00:00 HYDROCHLOROTHIAZIDE [facility] alejandro Cohen 2017-09-07 00:00:00 LETROZOLE [facility] [place] 2017-09-07 00:00:00 FLUCONAZOLE [facility] [place] 2017-09-07 00:00:00 SERTRALINE HCL [facility] [place] 2017-09-07 00:00:00 TELMISARTAN [facility] [place] 2017-09-07 00:00:00 HYDROCHLOROTHIAZIDE [facility] alejandro Cohen 2017-09-07 00:00:00 SIMVASTATIN [facility] [address] 2017-09-07 00:00:00 INSULIN GLARGINE [facility] [place] 2017-09-07 00:00:00 METFORMIN HCL [facility] [place] 2017-09-17 00:00:00 null [facility] [address] 2017-09-17 00:00:00 null [facility] [address] 2017-09-17 00:00:00 LIRAGLUTIDE [facility] [address] 2017-09-17 00:00:00 LIRAGLUTIDE [facility] [address] 2017-09-17 00:00:00 null [facility] [address] 2017-09-17 00:00:00 null [facility] [address] 2017-09-17 00:00:00 LIRAGLUTIDE [facility] [address] 2017-09-17 00:00:00 LIRAGLUTIDE [facility] [address] 2017-09-17 00:00:00 null [facility] [address] [facility] 2017-09-17 00:00:00 null [facility] [address] [facility] 2017-09-17 00:00:00 LIRAGLUTIDE [facility] [address] [facility] 2017-09-17 00:00:00 LIRAGLUTIDE [facility] [address] [facility] 2017-09-17 00:00:00 null [facility] [address] [facility] 2017-09-17 00:00:00 null [facility] [address] [facility] 2017-09-17 00:00:00 LIRAGLUTIDE [facility] [address] [facility] 2017-09-17 00:00:00 LIRAGLUTIDE [facility] [address] [facility] 2017-09-17 00:00:00 null [facility] [place] 2017-09-17 00:00:00 null [facility] [place] 2017-09-17 00:00:00 LIRAGLUTIDE [facility] [place] 2017-09-17 00:00:00 LIRAGLUTIDE [facility] [place] 2017-12-28 00:00:00 null [facility] [address] 2017-12-28 00:00:00 null [facility] [address] 2017-12-28 00:00:00 INSULIN ASPART [facility] [address] 2017-12-28 00:00:00 INSULIN ASPART [facility] [address] 2017-12-28 00:00:00 null [facility] [address] 2017-12-28 00:00:00 null [facility] [address] 2017-12-28 00:00:00 INSULIN ASPART [facility] [address] 2017-12-28 00:00:00 INSULIN ASPART [facility] [address] 2017-12-28 00:00:00 null [facility] [place] [facility] 2017-12-28 00:00:00 null [facility] [place] 2017-12-28 00:00:00 INSULIN ASPART [facility] 2017-12-28 00:00:00 INSULIN ASPART [facility] [place] [facility] 2017-12-28 00:00:00 null [facility] [place] [facility] 2017-12-28 00:00:00 null [facility] [place] 2017-12-28 00:00:00 INSULIN ASPART [facility] [address] [facility] 2017-12-28 00:00:00 INSULIN ASPART [facility] [place] [facility] 2017-12-28 00:00:00 null [facility] [place] 2017-12-28 00:00:00 null [facility] [place] 2017-12-28 00:00:00 INSULIN ASPART [facility] [place] 2017-12-28 00:00:00 INSULIN ASPART [facility] [place] 2018-03-08 00:00:00 null [facility] [address] 2018-03-08 00:00:00 null [facility] [address] 2018-03-08 00:00:00 null [facility] [address] 2018-03-08 00:00:00 [facility] [address] 2018-03-08 00:00:00 GLIPIZIDE [facility] [address] 2018-03-08 00:00:00 DOXYCYCLINE MONOHYDRATE [facility] [address] 2018-03-08 00:00:00 DOXYCYCLINE MONOHYDRATE [facility] [address] 2018-03-08 00:00:00 GLIPIZIDE [facility] [address] 2018-03-08 00:00:00 null [facility] [address] 2018-03-08 00:00:00 null [facility] [address] 2018-03-08 00:00:00 null [facility] [address] 2018-03-08 00:00:00 null [facility] [address] 2018-03-08 00:00:00 GLIPIZIDE [facility] [address] 2018-03-08 00:00:00 DOXYCYCLINE MONOHYDRATE [facility] [address] 2018-03-08 00:00:00 DOXYCYCLINE MONOHYDRATE [facility] [address] 2018-03-08 00:00:00 GLIPIZIDE [facility] [address] 2018-03-08 00:00:00 null [facility] [place] [facility] 2018-03-08 00:00:00 null [facility] [place] [facility] 2018-03-08 00:00:00 null [facility] [place] [facility] 2018-03-08 00:00:00 null [facility] [place] [facility] 2018-03-08 00:00:00 GLIPIZIDE [facility] [place] [facility] 2018-03-08 00:00:00 DOXYCYCLINE MONOHYDRATE [facility] [place] [facility] 2018-03-08 00:00:00 DOXYCYCLINE MONOHYDRATE [facility] [place] 2018-03-08 00:00:00 GLIPIZIDE [facility] [place] [facility] 2018-03-08 00:00:00 null [facility] [place] [facility] 2018-03-08 00:00:00 null [facility] [place] [facility] 2018-03-08 00:00:00 null [facility] [place] [facility] 2018-03-08 00:00:00 null [facility] [place] [facility] 2018-03-08 00:00:00 GLIPIZIDE [facility] [place] [facility] 2018-03-08 00:00:00 DOXYCYCLINE MONOHYDRATE [facility] [place] [facility] 2018-03-08 00:00:00 DOXYCYCLINE MONOHYDRATE [facility] [place] [facility] 2018-03-08 00:00:00 GLIPIZIDE [facility] [place] [facility] 2018-03-08 00:00:00 null [facility] [place] 2018-03-08 00:00:00 null [facility] [place] 2018-03-08 00:00:00 null [facility] [place] 2018-03-08 00:00:00 null [facility] [place] 2018-03-08 00:00:00 GLIPIZIDE [facility] [place] 2018-03-08 00:00:00 [facility] 00:00:00 [facility]INE [facility] [place] 2018-03-08 00:00:00 [facility]IDE [facility] [place] 2018-08-22 00:00:00 null [facility] [address] 2018-08-22 00:00:00 null [facility] [address] 2018-08-22 00:00:00 SULFAMETHOXAZOLE-TRIMETHOPRIM [facility] [address] 2018-08-22 00:00:00 SULFAMETHOXAZOLE-TRIMETHOPRIM [facility] [address] 2018-08-22 00:00:00 [facility] [address] 2018-08-22 00:00:00 null [facility] [address] 2018-08-22 00:00:00 SULFAMETHOXAZOLE-TRIMETHOPRIM [facility] [address] 2018-08-22 00:00:00 SULFAMETHOXAZOLE-TRIMETHOPRIM [facility] [address] 2018-08-22 00:00:00 [facility] [place] [facility] 2018-08-22 00:00:00 null [facility] [place] [facility] 2018-08-22 00:00:00 SULFAMETHOXAZOLE-TRIMETHOPRIM [facility] [place] [facility] 2018-08-22 00:00:00 SULFAMETHOXAZOLE-TRIMETHOPRIM [facility] [address] 2018-08-22 00:00:00 null [facility] [place] 2018-08-22 00:00:00 null [facility] [place] 2018-08-22 00:00:00 SULFAMETHOXAZOLE-TRIMETHOPRIM [facility] [address] 2018-08-22 00:00:00 SULFAMETHOXAZOLE-TRIMETHOPRIM [facility] 2018-08-22 00:00:00 null [facility] [place] 2018-08-22 00:00:00 null [facility] [place] 2018-08-22 00:00:00 SULFAMETHOXAZOLE-TRIMETHOPRIM [facility] [address] 2018-08-22 00:00:00 SULFAMETHOXAZOLE-TRIMETHOPRIM [facility] [place] 2019-03-22 00:00:00 null [facility] 2019-03-22 00:00:00 null [facility] 2019-03-22 00:00:00 SIMVASTATIN [facility] 2019-03-22 00:00:00 SIMVASTATIN [facility] [place] 2019-03-22 00:00:00 SIMVASTATIN [facility] [place] [facility] 2019-03-22 00[facility]00:00 null [facility] [place] 2019-03-22 00:00:00 null [facility] 2019-03-22 00:00:00 SIMVASTATIN [facility] [address] 2019-03-22 00:00:00 [facility]IN [facility] 2019-03-22 00:00:00 [facility]IN [facility] 2019-03-22 00:00:00 null [facility] 2019-03-22 00:00:00 null [facility] 2019-03-22 00:00:00 [facility] 2019-03-22 00:00:00 SIMVASTATIN [facility] 2019-03-22 00:00:00 SIMVASTATIN [facility] 2019-04-28 00:00:00 null [facility] 2019-04-28 00:00:00 null [facility] 2019-04-28 00:00:00 INSULIN PEN NEEDLE [facility] 2019-04-28 00:00:00 null [facility] 2019-04-28 00:00:00 null [facility] 2019-04-28 00:00:00 INSULIN PEN NEEDLE [facility] 2019-04-28 00:00:00 null [facility] 2019-04-28 00:00:00 null [facility] 2019-04-28 00:00:00 INSULIN PEN NEEDLE [facility] 2020-08-29 00:00:00 null [facility] 2020-08-29 00:00:00 null [facility] 2020-08-29 00:00:00 GLYBURIDE-METFORMIN [facility] 2020-08-29 00:00:00 GLYBURIDE-METFORMIN [facility] 2020-08-29 00:00:00 null [facility] 2020-08-29 00:00:00 null [facility] 2020-08-29 00:00:00 GLYBURIDE-METFORMIN [facility] 2020-08-29 00:00:00 GLYBURIDE-METFORMIN [facility] 2020-11-07 00:00:00 null [facility] 2020-11-07 00:00:00 null [facility] 2020-11-07 00:00:00 DULAGLUTIDE [facility] 2020-11-07 00:00:00 DULAGLUTIDE [facility] Procedures date description facility 2017-09-07 00:00:00 MM SCR DIGITAL BILAT [facility] [address] date description facility 2017-09-07 00:00:00 CMP [facility] [address] date description facility 2017-09-07 00:00:00 LIPIDS [facility] [address] date description facility 2017-09-07 00:00:00 Microalbumin [facility] [address] date description facility 2017-09-07 00:00:00 HGBA1C [facility] [address] date description facility 2017-09-07 00:00:00 CBC W/Diff/Plt [facility] [address] date description facility 2017-09-07 00:00:00 [facility] [address] date description facility 2017-09-07 00:00:00 MM SCR DIGITAL BILAT [facility] [address] date description facility 2017-09-07 00:00:00 CMP [facility] [address] date description facility 2017-09-07 00:00:00 LIPIDS [facility] [address] date description facility 2017-09-07 00:00:00 Microalbumin [facility] [address] date description facility 2017-09-07 00:00:00 HGBA1C [facility] [address] date description facility 2017-09-07 00:00:00 CBC W/Diff/Plt [facility] [address] date description facility 2017-09-07 00:00:00 [facility] [address] date description facility 2017-09-07 00:00:00 MM SCR DIGITAL BILAT [facility] date description facility 2017-09-07 00:00:00 CMP [facility] date description facility 2017-09-07 00:00:00 LIPIDS [facility] date description facility 2017-09-07 00:00:00 Microalbumin [facility] date description facility 2017-09-07 00:00:00 HGBA1C [facility] date description facility 2017-09-07 00:00:00 CBC W/Diff/Plt [facility] date description facility 2017-09-07 00:00:00 [facility] date description facility 2017-09-07 00:00:00 MM SCR DIGITAL BILAT [facility] date description facility 2017-09-07 00:00:00 CMP [facility] date description facility 2017-09-07 00:00:00 LIPIDS [facility] date description facility 2017-09-07 00:00:00 Microalbumin [facility] date description facility 2017-09-07 00:00:00 HGBA1C [facility] date description facility 2017-09-07 00:00:00 CBC W/Diff/Plt [facility] date description facility 2017-09-07 00:00:00 [facility] date description facility 2017-09-07 00:00:00 MM SCR DIGITAL BILAT [facility] date description facility 2017-09-07 00:00:00 CMP [facility] date description facility 2017-09-07 00:00:00 LIPIDS [facility] date description facility 2017-09-07 00:00:00 Microalbumin [facility] date description facility 2017-09-07 00:00:00 HGBA1C [facility] date description facility 2017-09-07 00:00:00 CBC W/Diff/Plt [facility] date description facility 2017-09-07 00:00:00 [facility] date description facility 2017-09-09 00:00:00 Microalbumin [facility] [address] date description facility 2017-09-09 00:00:00 [facility] [address] date description facility 2017-09-09 00:00:00 Microalbumin [facility] [address] date description facility 2017-09-09 00:00:00 [facility] [address] date description facility 2017-09-09 00:00:00 Microalbumin [facility] date description facility 2017-09-09 00:00:00 [facility] date description facility 2017-09-09 00:00:00 Microalbumin [facility] date description facility 2017-09-09 00:00:00 [facility] date description facility 2017-09-09 00:00:00 Microalbumin [facility] date description facility 2017-09-09 00:00:00 [facility] date description facility 2017-12-13 00:00:00 TSH w/Reflex to Free T4, if [facility] [address] date description facility 2017-12-13 00:00:00 COMPREHENSIVE METABOLIC PANEL [facility] [address] date description facility 2017-12-13 00:00:00 LIPID SCREEN, FASTING [facility] [address] date description facility 2017-12-13 00:00:00 MICROALBUMIN-RANDOM URINE [facility] [address] date description facility 2017-12-13 00:00:00 HGBA1C [facility] date description facility 2017-12-13 00:00:00 CBC W/Diff/Plt [facility] [address] date description facility 2017-12-13 00:00:00 [facility] [address] date description facility 2017-12-13 00:00:00 TSH w/Reflex to Free T4, if [facility] [address] date description facility 2017-12-13 00:00:00 COMPREHENSIVE METABOLIC PANEL [facility] [address] date description facility 2017-12-13 00:00:00 LIPID SCREEN, FASTING [facility] [address] date description facility 2017-12-13 00:00:00 MICROALBUMIN-RANDOM URINE [facility] [address] date description facility 2017-12-13 00:00:00 HGBA1C [facility] [address] date description facility 2017-12-13 00:00:00 CBC W/Diff/Plt [facility] [address] date description facility 2017-12-13 00:00:00 [facility] [address] date description facility 2017-12-13 00:00:00 TSH w/Reflex to Free T4, if [facility] date description facility 2017-12-13 00:00:00 COMPREHENSIVE METABOLIC PANEL [facility] date description facility 2017-12-13 00:00:00 LIPID SCREEN, FASTING [facility] date description facility 2017-12-13 00:00:00 MICROALBUMIN-RANDOM URINE [facility] date description facility 2017-12-13 00:00:00 HGBA1C [facility] date description facility 2017-12-13 00:00:00 CBC W/Diff/Plt [facility] date description facility 2017-12-13 00:00:00 [facility] date description facility 2017-12-13 00:00:00 TSH w/Reflex to Free T4, if [facility] date description facility 2017-12-13 00:00:00 COMPREHENSIVE METABOLIC PANEL [facility] date description facility 2017-12-13 00:00:00 LIPID SCREEN, FASTING [facility] date description facility 2017-12-13 00:00:00 MICROALBUMIN-RANDOM URINE [facility] date description facility 2017-12-13 00:00:00 HGBA1C [facility] date description facility 2017-12-13 00:00:00 CBC W/Diff/Plt [facility] date description facility 2017-12-13 00:00:00 [facility] date description facility 2017-12-13 00:00:00 TSH w/Reflex to Free T4, if [facility] date description facility 2017-12-13 00:00:00 COMPREHENSIVE METABOLIC PANEL [facility] date description facility 2017-12-13 00:00:00 LIPID SCREEN, FASTING [facility] date description facility 2017-12-13 00:00:00 MICROALBUMIN-RANDOM URINE [facility] date description facility 2017-12-13 00:00:00 HGBA1C [facility] date description facility 2017-12-13 00:00:00 CBC W/Diff/Plt [facility] date description facility 2017-12-13 00:00:00 [facility] date description facility 2018-03-08 00:00:00 X-RAY EXAM CHEST 2 VIEWS [facility] [address] date description facility 2018-03-08 00:00:00 COMPREHENSIVE METABOLIC PANEL [facility] [address] date description facility 2018-03-08 00:00:00 HGBA1C [facility] [address] date description facility 2018-03-08 00:00:00 CBC W/Diff/Plt [facility] [address] date description facility 2018-03-08 00:00:00 [facility] [address] date description facility 2018-03-08 00:00:00 X-RAY EXAM CHEST 2 VIEWS [facility] [address] date description facility 2018-03-08 00:00:00 COMPREHENSIVE METABOLIC PANEL [facility] [address] date description facility 2018-03-08 00:00:00 HGBA1C [facility] [address] date description facility 2018-03-08 00:00:00 CBC W/Diff/Plt [facility] [address] date description facility 2018-03-08 00:00:00 [facility] [address] date description facility 2018-03-08 00:00:00 X-RAY EXAM CHEST 2 VIEWS [facility] date description facility 2018-03-08 00:00:00 COMPREHENSIVE METABOLIC PANEL [facility] date description facility 2018-03-08 00:00:00 HGBA1C [facility] date description facility 2018-03-08 00:00:00 CBC W/Diff/Plt [facility] date description facility 2018-03-08 00:00:00 [facility] date description facility 2018-03-08 00:00:00 X-RAY EXAM CHEST 2 VIEWS [facility] date description facility 2018-03-08 00:00:00 COMPREHENSIVE METABOLIC PANEL [facility] date description facility 2018-03-08 00:00:00 HGBA1C [facility] date description facility 2018-03-08 00:00:00 CBC W/Diff/Plt [facility] date description facility 2018-03-08 00:00:00 [facility] date description facility 2018-03-08 00:00:00 X-RAY EXAM CHEST 2 VIEWS [facility] date description facility 2018-03-08 00:00:00 COMPREHENSIVE METABOLIC PANEL [facility] date description facility 2018-03-08 00:00:00 HGBA1C [facility] date description facility 2018-03-08 00:00:00 CBC W/Diff/Plt [facility] date description facility 2018-03-08 00:00:00 [facility] date description facility 2018-08-22 00:00:00 Urine C&S [facility] [address] date description facility 2018-08-22 00:00:00 BMP [facility] [address] date description facility 2018-08-22 00:00:00 HGBA1C [facility] [address] date description facility 2018-08-22 00:00:00 [facility] [address] date description facility 2018-08-22 00:00:00 Urine C&S [facility] [address] date description facility 2018-08-22 00:00:00 BMP [facility] [address] date description facility 2018-08-22 00:00:00 HGBA1C [facility] [address] date description facility 2018-08-22 00:00:00 [facility] [address] date description facility 2018-08-22 00:00:00 Urine C&S [facility] date description facility 2018-08-22 00:00:00 BMP [facility] date description facility 2018-08-22 00:00:00 HGBA1C [facility] date description facility 2018-08-22 00:00:00 [facility] date description facility 2018-08-22 00:00:00 Urine C&S [facility] date description facility 2018-08-22 00:00:00 BMP [facility] date description facility 2018-08-22 00:00:00 HGBA1C [facility] date description facility 2018-08-22 00:00:00 [facility] date description facility 2018-08-22 00:00:00 Urine C&S [facility] date description facility 2018-08-22 00:00:00 BMP [facility] date description facility 2018-08-22 00:00:00 HGBA1C [facility] date description facility 2018-08-22 00:00:00 [facility] date description facility 2018-08-26 00:00:00 UA W/Micro, C&S if Ind [facility] [address] date description facility 2018-08-26 00:00:00 [facility] [address] date description facility 2018-08-26 00:00:00 UA W/Micro, C&S if Ind [facility] [address] date description facility 2018-08-26 00:00:00 [facility] [address] date description facility 2018-08-26 00:00:00 UA W/Micro, C&S if Ind [facility] date description facility 2018-08-26 00:00:00 [facility] date description facility 2018-08-26 00:00:00 UA W/Micro, C&S if Ind [facility] date description facility 2018-08-26 00:00:00 [facility] date description facility 2018-08-26 00:00:00 UA W/Micro, C&S if Ind [facility] date description facility 2018-08-26 00:00:00 [facility] date description facility 2018-08-29 00:00:00 UA W/Micro, C&S if Ind [facility] [address] date description facility 2018-08-29 00:00:00 [facility] [address] date description facility 2018-08-29 00:00:00 UA W/Micro, C&S if Ind [facility] [address] date description facility 2018-08-29 00:00:00 [facility] [address] date description facility 2018-08-29 00:00:00 UA W/Micro, C&S if Ind [facility] date description facility 2018-08-29 00:00:00 [facility] date description facility 2018-08-29 00:00:00 UA W/Micro, C&S if Ind [facility] date description facility 2018-08-29 00:00:00 [facility] date description facility 2018-08-29 00:00:00 UA W/Micro, C&S if Ind [facility] date description facility 2018-08-29 00:00:00 [facility] date description facility 2018-09-07 00:00:00 COMPREHENS[facility]ABOLIC PANEL [facility] [address] date description facility 2018-09-07 00:00:00 LIPID SCREEN, FASTING [facility] [address] date description facility 2018-09-07 00:00:00 HGBA1C [facility] [address] date description facility 2018-09-07 00:00:00 CBC W/Diff/Plt [facility] [address] date description facility 2018-09-07 00:00:00 [facility] [address] date description facility 2018-09-07 00:00:00 COMPREHENSIVE METABOLIC PANEL [facility] [address] date description facility 2018-09-07 00:00:00 LIPID SCREEN, FASTING [facility] [address] date description facility 2018-09-07 00:00:00 HGBA1C [facility] [address] date description facility 2018-09-07 00:00:00 CBC W/Diff/Plt [facility] [address] date description facility 2018-09-07 00:00:00 [facility] [address] date description facility 2018-09-07 00:00:00 COMPREHENSIVE METABOLIC PANEL [facility] date description facility 2018-09-07 00:00:00 LIPID SCREEN, FASTING [facility] date description facility 2018-09-07 00:00:00 [facility] 2018-09-07 00:00:00 HGBA1C [facility] date description facility 2018-09-07 00:00:00 CBC W/Diff/Plt [facility] date description facility 2018-09-07 00:00:00 [facility] date description facility 2018-09-07 00:00:00 COMPREHENSIVE METABOLIC PANEL [facility] date description facility 2018-09-07 00:00:00 LIPID SCREEN, FASTING [facility] date description facility 2018-09-07 00:00:00 MICROALBUMIN-RANDOM URINE [facility] date description facility 2018-09-07 00:00:00 HGBA1C [facility] date description facility 2018-09-07 00:00:00 CBC W/Diff/Plt [facility] date description facility 2018-09-07 00:00:00 [facility] date description facility 2018-09-07 00:00:00 COMPREHENSIVE METABOLIC PANEL [facility] date description facility 2018-09-07 00:00:00 LIPID SCREEN, FASTING [facility] date description facility 2018-09-07 00:00:00 MICROALBUMIN-RANDOM URINE [facility] date description facility 2018-09-07 00:00:00 HGBA1C [facility] date description facility 2018-09-07 00:00:00 CBC W/Diff/Plt [facility] date description facility 2018-09-07 00:00:00 [facility] date description facility 2018-09-08 00:00:00 [facility]ocrinology Consultation [facility] date description facility 2018-09-08 00:00:00 [facility] date description facility 2018-09-08 00:00:00 [facility]ology [facility]ation [facility] date description facility 2018-09-08 00:00:00 [facility] date description facility 2018-09-08 00:00:00 Endocrinology Consultation [facility] date description facility 2018-09-08 00:00:00 [facility] date description facility 2018-09-27 00:00:00 MM SCR DIGITAL BILAT [facility] [address] date description facility 2018-09-27 00:00:00 [facility] [address] date description facility 2018-09-27 00:00:00 MM SCR DIGITAL BILAT [facility] [address] date description facility 2018-09-27 00:00:00 [facility] [address] date description facility 2018-09-27 00:00:00 MM SCR DIGITAL BILAT [facility] date description facility 2018-09-27 00:00:00 [facility] date description facility 2018-09-27 00:00:00 MM SCR DIGITAL BILAT [facility] date description facility 2018-09-27 00:00:00 [facility] date description facility 2018-09-27 00:00:00 MM SCR DIGITAL BILAT [facility] date description facility 2018-09-27 00:00:00 [facility] date description facility 2019-01-17 00:00:00 COMPREHENSIVE METABOLIC PANEL [facility] date description facility 2019-01-17 00:00:00 LIP[facility] SCREEN, FASTING [facility] date description facility 2019-01-17 00:00:00 FECAL OCCULT BLOOD (FIT) [facility] date description facility 2019-01-17 00:00:00 HGBA1C [facility] date description facility 2019-01-17 00:00:00 TSH [facility] date description facility 2019-01-17 00:00:00 CBC W/Diff/Plt [facility] date description facility 2019-01-17 00:00:00 [facility] date description facility 2019-01-17 00:00:00 [facility] date description facility 2019-01-17 00:00:00 COMPREHENSIVE METABOLIC PANEL [facility] date description facility 2019-01-17 00:00:00 LIPID SCREEN, FASTING [facility] date description facility 2019-01-17 00:00:00 FECAL OCCULT BLOOD (FIT) [facility] date description facility 2019-01-17 00:00:00 HGBA1C [facility] date description facility 2019-01-17 00:00:00 [facility] facility 2019-01-17 00:00:00 CBC W/Diff/Plt [facility] date description facility 2019-01-17 00:00:00 [facility] date description facility 2019-01-17 00:[facility] facility 2019-01-17 00:00:00 COMPREHENSIVE METABOLIC PANEL [facility] date description facility 2019-01-17 00:00:00 LIPID SCREEN, FASTING [facility] date description facility 2019-01-17 00:00:00 FECAL OCCULT BLOOD (FIT) [facility] facility 2019-01-17 00:00:00 HGBA1C [facility] date description facility 2019-01-17 00:00:00 TSH [facility] date description facility 2019-01-17 00:00:00 CBC W/Diff/Plt [facility] date description facility 2019-01-17 00:00:00 [facility] date description facility 2019-01-17 00:00:00 [facility] date description facility 2019-01-30 00:00:00 Guaiac, 1-3 slides [facility] date description facility 2019-01-30 00:00:00 [facility] date description facility 2019-01-30 00:00:00 Guaiac, 1-3 slides [facility] date description facility 2019-01-30 00:00:00 [facility] date description facility 2019-01-30 00:00:00 Guaiac, 1-3 slides [facility] date description facility 2019-01-30 00:00:00 [facility] date description facility 2019-03-22 00:00:00 HGBA1C [facility] date description facility 2019-03-22 00:00:00 Dermatology Consultation [facility] date description facility 2019-03-22 00:00:00 [facility] date description facility 2019-03-22 00:00:00 HGBA1C [facility] date description facility 2019-03-22 00:00:00 Dermatology Consultation [facility] date description facility 2019-03-22 00:00:00 [facility] date description facility 2019-03-22 00:00:00 HGBA1C [facility] date description facility 2019-03-22 00:00:00 Dermatology Consultation [facility] date description facility 2019-03-22 00:00:00 [facility] date description facility 2019-07-31 00:00:00 MICROALBUMIN/CREAT RATIO [facility] date description facility 2019-07-31 00:00:00 Basic Metabolic Panel (BMP) [facility] date description facility 2019-07-31 00:00:00 HGBA1C [facility] date description facility 2019-07-31 00:00:00 [facility] date description facility 2019-07-31 00:00:00 MICROALBUMIN/CREAT RATIO [facility] date description facility 2019-07-31 00:00:00 Basic Metabolic Panel (BMP) [facility] date description facility 2019-07-31 00:00:00 HGBA1C [facility] date description facility 2019-07-31 00:00:00 [facility] date description facility 2019-07-31 00:00:00 MICROALBUMIN/CREAT RATIO [facility] date description facility 2019-07-31 00:00:00 Basic Metabolic Panel (BMP) [facility] date description facility 2019-07-31 00:00:00 HGBA1C [facility] date description facility 2019-07-31 00:00:00 [facility] date description facility 2019-08-24 00:00:00 Pain Management Consultation [facility] date description facility 2019-08-24 00:00:00 [facility] date description facility 2019-08-24 00:00:00 Pain Management Consultation [facility] date description facility 2019-08-24 00:00:00 [facility] date description facility 2019-08-24 00:00:00 Pain Management Consultation [facility] date description facility 2019-08-24 00:00:00 [facility] date description facility 2019-10-24 00:00:00 MICROALBUMIN/CREAT RATIO [facility] date description facility 2019-10-24 00:00:00 TSH WITH REFLEX TO FT4 [facility] date description facility 2019-10-24 00:00:00 COMPREHENSIVE METABOLIC PANEL [facility] date description facility 2019-10-24 00:00:00 LIPID SCREEN, FASTING [facility] date description facility 2019-10-24 00:00:00 HGBA1C [facility] date description facility 2019-10-24 00:00:00 CBC W/Diff/Plt [facility] date description facility 2019-10-24 00:00:00 [facility] date description facility 2019-10-24 00:00:00 MICROALBUMIN/CREAT RATIO [facility] date description facility 2019-10-24 00:00:00 TSH WITH REFLEX TO FT4 [facility] date description facility 2019-10-24 00:00:00 COMPREHENSIVE METABOLIC PANEL [facility] date description facility 2019-10-24 00:00:00 LIPID SCREEN, FASTING [facility] date description facility 2019-10-24 00:00:00 HGBA1C [facility] date description facility 2019-10-24 00:00:00 CBC W/Diff/Plt [facility] date description facility 2019-10-24 00:00:00 [facility] date description facility 2019-10-24 00:00:00 MICROALBUMIN/CREAT RATIO [facility] date description facility 2019-10-24 00:00:00 TSH WITH REFLEX TO FT4 [facility] date description facility 2019-10-24 00:00:00 COMPREHENSIVE METABOLIC PANEL [facility] date description facility 2019-10-24 00:00:00 LIPID SCREEN, FASTING [facility] date description facility 2019-10-24 00:00:00 HGBA1C [facility] date description facility 2019-10-24 00:00:00 CBC W/Diff/Plt [facility] date description facility 2019-10-24 00:00:00 [facility] date description facility 2019-12-19 00:00:00 MM SCR DIGITAL BILAT [facility] date description facility 2019-12-19 00:00:00 [facility] date description facility 2019-12-19 00:00:00 MM SCR DIGITAL BILAT [facility] date description facility 2019-12-19 00:00:00 [facility] date description facility 2019-12-19 00:00:00 MM SCR DIGITAL BILAT [facility] date description facility 2019-12-19 00:00:00 [facility] date description facility 2020-02-21 00:00:00 MICROALBUMIN/CREAT RATIO [facility] date description facility 2020-02-21 00:00:00 Basic Metabolic Panel (BMP) [facility] date description facility 2020-02-21 00:00:00 HGBA1C [facility] date description facility 2020-02-21 00:00:00 [facility] date description facility 2020-02-21 00:00:00 MICROALBUMIN/CREAT RATIO [facility] date description facility 2020-02-21 00:00:00 Basic Metabolic Panel (BMP) [facility] date description facility 2020-02-21 00:00:00 HGBA1C [facility] date description facility 2020-02-21 00:00:00 [facility] date description facility 2020-02-21 00:00:00 MICROALBUMIN/CREAT RATIO [facility] date description facility 2020-02-21 00:00:00 Basic Metabolic Panel (BMP) [facility] date description facility 2020-02-21 00:00:00 HGBA1C [facility] date description facility 2020-02-21 00:00:00 [facility] date description facility 2020-03-01 00:00:00 Basic Metabolic Panel (BMP) [facility] date description facility 2020-03-01 00:00:00 HGBA1C [facility] date description facility 2020-03-01 00:00:00 [facility] date description facility 2020-03-01 00:00:00 Basic Metabolic Panel (BMP) [facility] date description facility 2020-03-01 00:00:00 HGBA1C [facility] date description facility 2020-03-01 00:00:00 [facility] date description facility 2020-03-01 00:00:00 Basic Metabolic Panel (BMP) [facility] date description facility 2020-03-01 00:00:00 HGBA1C [facility] date description facility 2020-03-01 00:00:00 [facility] date description facility 2020-04-19 00:00:00 [facility] date description facility 2020-04-22 00:00:00 [facility] date description facility 2020-08-05 00:00:00 MICROALBUMIN/CREAT RATIO [facility] date description facility 2020-08-05 00:00:00 Basic Metabolic Panel (BMP) [facility] date description facility 2020-08-05 00:00:00 HGBA1C [facility] date description facility 2020-08-05 00:00:00 [facility] date description facility 2020-08-05 00:00:00 MICROALBUMIN/CREAT RATIO [facility] date description facility 2020-08-05 00:00:00 Basic Metabolic Panel (BMP) [facility] date description facility 2020-08-05 00:00:00 HGBA1C [facility] date description facility 2020-08-05 00:00:00 [facility] date description facility 2020-09-19 00:00:00 Basic Metabolic Panel (BMP) [facility] date description facility 2020-09-19 00:00:00 LIPIDS SCREEN [facility] date description facility 2020-09-19 00:00:00 HGBA1C [facility] date description facility 2020-09-19 00:00:00 [facility] date description facility 2020-11-01 00:00:00 Basic Metabolic Panel (BMP) [facility] date description facility 2020-11-01 00:00:00 [facility] Results Social History date description facility 2017-09-07 00:00:00 Current every day smoker [facility] date description facility 2017-09-17 00:00:00 Current every day smoker [facility] date description facility 2017-10-21 00:00:00 Current every day smoker [facility] date description facility 2017-12-28 00:00:00 Current every day smoker [facility] date description facility 2018-03-08 00:00:00 Current every day smoker [facility] date description facility 2018-06-07 00:00:00 Current every day smoker [facility] date description facility 2018-08-22 00:00:00 Current every day smoker [facility] date description facility 2018-09-07 00:00:00 Current every day smoker [facility] date description facility 2019-01-17 00:00:00 Current every day smoker [facility] date description facility 2019-02-06 00:00:00 Current every day smoker [facility] date description facility 2019-03-22 00:00:00 Current every day smoker [facility] date description facility 2019-04-28 00:00:00 Current every day smoker [facility] date description facility 2019-08-24 00:00:00 Current every day smoker [facility] date description facility 2019-12-19 00:00:00 Current every day smoker [facility] date description facility 2020-05-21 00:00:00 Current every day smoker [facility] date description facility 2020-08-05 00:00:00 Current every day smoker [facility] date description facility 2020-08-29 00:00:00 Current every day smoker [facility] date description facility 2020-11-07 00:00:00 Current every day smoker [facility] Social History date description facility 2017-09-07 00:00:00 Current every day smoker [facility] date description facility 2017-09-17 00:00:00 Current every day smoker [facility] date description facility 2017-10-21 00:00:00 Current every day smoker [facility] date description facility 2017-12-28 00:00:00 Current every day smoker [facility] date description facility 2018-03-08 00:00:00 Current every day smoker [facility] date description facility 2018-06-07 00:00:00 Current every day smoker [facility] date description facility 2018-08-22 00:00:00 Current every day smoker [facility] date description facility 2018-09-07 00:00:00 Current every day smoker [facility] date description facility 2019-01-17 00:00:00 Current every day smoker [facility] date description facility 2019-02-06 00:00:00 Current every day smoker [facility] date description facility 2019-03-22 00:00:00 Current every day smoker [facility] date description facility 2019-04-28 00:00:00 Current every day smoker [facility] date description facility 2019-08-24 00:00:00 Current every day smoker [facility] date description facility 2019-12-19 00:00:00 Current every day smoker [facility] date description facility 2020-05-21 00:00:00 Current every day smoker [facility] date description facility 2020-08-05 00:00:00 Current every day smoker [facility] date description facility 2020-08-29 00:00:00 Current every day smoker [facility] date description facility 2020-11-07 00:00:00 Current every day smoker [facility] date description facility [phone]
== END 2020-11-07 23:59 | disposition home or self-care (01) ==
LOC: COV 11:45
PROVIDERS: ATTEND Family Medicine
DX: R05 Cough (principal); Z20.828 Contact with and (suspected) exposure to other viral communicable diseases

== ENCOUNTER 2021-02-17 07:00 | Outpatient (CLI) | payer MEDICARE, OTHER ==
[2021-02-17 18:41] LABS: BASOPHILS # (AUTO) 0.1 10^3/uL (0.0-0.1); BASOPHILS % (AUTO) 0.4 %; EOSINOPHILS # (AUTO) 0.1 10^3/uL (0.0-0.7); EOSINOPHILS % (AUTO) 1.1 %; HCT - HEMATOCRIT 46.1 % (37.0-47.0); HGB - HEMOGLOBIN 15.2 g/dL (12.0-16.0); LYMPHOCYTES # (AUTO) 3.4 10^3/uL (1.5-3.5); LYMPHOCYTES % (AUTO) 29.6 %; MEAN CORPUSCULAR HEMOGLOBIN 30.5 pg (27.0-31.0); MEAN CORPUSCULAR VOLUME 92.6 fL (81.0-99.0); MEAN PLATELET VOLUME 13.5 fL (7.9-10.8); MONOCYTES # (AUTO) 0.7 10^3/uL (0.0-1.0); MONOCYTES % (AUTO) 6.5 %; NEUTROPHILS # (AUTO) 7.1 10^3/uL (1.5-6.6); NEUTROPHILS % (AUTO) 62.1 %; PLT - PLATELET COUNT 196 10^3/uL (130-450); RED BLOOD COUNT 4.98 10^6/uL (4.20-5.40); RED CELL DISTRIBUTION WIDTH 13.7 % (12.0-15.0); WHITE BLOOD COUNT 11.5 x10^3/uL (4.8-10.8)
[2021-02-17 19:20] LABS: ALBUMIN/GLOBULIN RATIO 1.1 (1.0-2.2); ALKALINE PHOSPHATASE 122 IU/L (42-121); ALT ALANINE AMINOTRANSFERASE 24 IU/L (10-60); AST ASPARTATE AMINOTRANSFERASE 16 IU/L (10-42); BILIRUBIN,TOTAL 0.7 mg/dL (0.2-1.0); BUN - BLOOD UREA NITROGEN 27 mg/dL (6-20); CALCIUM 10.3 mg/dL (8.5-10.3); CARBON DIOXIDE - CO2 25 mmol/L (21-32); CHLORIDE 93 mmol/L (101-111); CHOL/HDL RATIO 3.9 (<4.4); CHOLESTEROL 189 mg/dL; CREATININE 1.1 mg/dL (0.4-1.0); GFR - MDRD 49 (>89); GLUCOSE 316 mg/dL (70-100); HDL CHOLESTEROL 49 mg/dL; LDL CHOLESTEROL,CALCULATED 99 mg/dL; POTASSIUM 4.2 mmol/L (3.5-5.0); SODIUM 132 mmol/L (135-145); TOTAL PROTEIN 7.6 g/dL (6.7-8.2); TRIGLYCERIDES 204 mg/dL; VLDL CHOLESTEROL 41 mg/dL
[2021-02-17 19:23] LABS: THYROID STIMULATING HORMONE 2.22 uIU/mL (0.34-5.60)
[2021-02-17 19:57] LABS: ESTIMATED AVERAGE GLUCOSE 369 mg/dL (70-100); HEMOGLOBIN A1c% 14.5 % (4.27-6.07)
== END 2021-02-17 23:59 | disposition home or self-care (01) ==
LOC: LAB.WCP 07:00
PROVIDERS: ATTEND Internal Medicine
DX: I12.9 Hypertensive chronic kidney disease with stage 1 through stage 4 chronic kidney disease, or unspecified chronic kidney disease (principal); E11.22 Type 2 diabetes mellitus with diabetic chronic kidney disease; E11.65 Type 2 diabetes mellitus with hyperglycemia; N18.2 Chronic kidney disease, stage 2 (mild); E78.5 Hyperlipidemia, unspecified; Z79.4 Long term (current) use of insulin
CPT/HCPCS: 36415; 80053; 80061; 82043; 82570; 83036; 83721; 84443; 85025

== ENCOUNTER 2021-02-18 08:00 | Outpatient (CLI) | payer MEDICARE, OTHER ==
[2021-02-18 13:28] LABS: CREATININE,URINE 31.3 mg/dL
[2021-02-18 13:35] LABS: MICROALBUMIN,URINE < 0.2 mg/dL (0-300.0)
== END 2021-02-18 23:59 | disposition home or self-care (01) ==
LOC: LAB.WCP 08:00
PROVIDERS: ATTEND Internal Medicine
DX: E11.8 Type 2 diabetes mellitus with unspecified complications (principal); Z79.4 Long term (current) use of insulin
CPT/HCPCS: 82043; 82570

== ENCOUNTER 2021-06-13 08:00 | Outpatient (CLI) | payer MEDICARE, OTHER ==
[2021-06-13 17:45] LABS: CALCIUM 9.7 mg/dL (8.5-10.3); CREATININE 0.9 mg/dL (0.4-1.0)
[2021-06-13 17:55] LABS: CREATININE,URINE 238.8 mg/dL; MICROALBUM/CREATININE RATIO,UR 22.2 ug/mg (<30.0); MICROALBUMIN,URINE 5.3 mg/dL (0-300.0)
[2021-06-13 20:24] LABS: ESTIMATED AVERAGE GLUCOSE 260 mg/dL (70-100); HEMOGLOBIN A1c% 10.7 % (4.27-6.07)
== END 2021-06-13 23:59 | disposition home or self-care (01) ==
LOC: LAB.WCP 08:00
PROVIDERS: ATTEND Internal Medicine
DX: E11.8 Type 2 diabetes mellitus with unspecified complications (principal)
CPT/HCPCS: 36415; 80048; 82043; 82570; 83036

== ENCOUNTER 2021-06-18 16:01 | Outpatient (CLI) | payer MEDICARE, OTHER ==
--- NOTE | 2021-06-18 17:14 | XRAY Report ---
PROCEDURE: Ankle 3 View LT INDICATIONS: L FOOT PX TECHNIQUE: 3 views of the ankle were acquired. COMPARISON: Foot plain films same day. FINDINGS: Bones: No fractures or dislocations. Ankle mortise is normally aligned. No suspicious bony lesions . Soft tissues: No tibiotalar joint effusion. Achilles tendon appears normal. IMPRESSION: No trauma found. Mild joint space thinning at the tibiotalar joint indicating mild osteo arthritis. Reviewed by: Logan Guzman MD on 06/18/2021 5:12 PM PDT Approved by: Logan Guzman MD on 06/18/2021 5:12 PM PDT Station ID: [id number]
--- NOTE | 2021-06-19 13:20 | XRAY Report ---
PROCEDURE: Foot 3 View LT INDICATIONS: L FOOT PX TECHNIQUE: 3 views of the foot were acquired. COMPARISON: None FINDINGS: Bones: No definite acute fractures or dislocations. No suspicious bony lesions. A transverse band of sclerosis crosses the proximal metadiaphyseal junction of the third metatarsal bone, with an appea siomara consistent with healing or healed fracture in that area. Soft tissues: No tibiotalar joint effusion. Achilles tendon appears normal. IMPRESSION: Soft tissue swelling is seen over the forefoot on the lateral view. No definite acute fracture or sub luxation is seen. There is a band of sclerosis across the proximal aspect of the third metatarsal mandy ne, with an appearance suggestive of healing or healed fracture as the underlying cause. Please correlate for prior trauma history related to the finding at the base of the third metatarsal bone. Reviewed by: Logan Guzman MD on 06/19/2021 1:18 PM PDT Approved by: Logan Guzman MD on 06/19/2021 1:18 PM PDT Station ID: [id number]
== END 2021-06-18 16:02 | disposition home or self-care (01) ==
LOC: DI.N 16:01
PROVIDERS: ATTEND Internal Medicine
DX: M79.672 Pain in left foot (principal); M19.072 Primary osteoarthritis, left ankle and foot

== ENCOUNTER 2021-09-29 08:00 | Outpatient (CLI) | payer MEDICARE, OTHER ==
[2021-09-29 11:44] LABS: ESTIMATED AVERAGE GLUCOSE 223 mg/dL (70-100); HEMOGLOBIN A1c% 9.4 % (4.27-6.07)
[2021-09-29 12:38] LABS: CALCIUM 9.8 mg/dL (8.5-10.3); POTASSIUM 3.8 mmol/L (3.5-5.0)
[2021-09-29 12:57] LABS: CREATININE,URINE 127.7 mg/dL; MICROALBUM/CREATININE RATIO,UR 5.5 ug/mg (<30.0); MICROALBUMIN,URINE 0.7 mg/dL (0-300.0)
== END 2021-09-29 23:59 ==
LOC: LAB.WCP 08:00
PROVIDERS: ATTEND Internal Medicine
DX: E11.8 Type 2 diabetes mellitus with unspecified complications (principal)
CPT/HCPCS: 36415; 80048; 82043; 82570; 83036